=== PATIENT | female | born 1975 | race Caucasian/White ===

== ENCOUNTER 2024-03-06 08:41 | Outpatient (RCR) | payer OTHER, MEDICARE, MEDICAID, SELFPAY | END 2024-05-31 12:31 | disposition home or self-care (01) | LOC: HO.WCC 08:41 | PROVIDERS: Visit Provider Surgery | DX: E11.621 Type 2 diabetes mellitus with foot ulcer (principal); L97.511 Non-pressure chronic ulcer of other part of right foot limited to breakdown of skin; E11.40 Type 2 diabetes mellitus with diabetic neuropathy, unspecified; F17.210 Nicotine dependence, cigarettes, uncomplicated; F11.20 Opioid dependence, uncomplicated; L08.89 Other specified local infections of the skin and subcutaneous tissue; Z79.2 Long term (current) use of antibiotics; Z86.19 Personal history of other infectious and parasitic diseases | CPT/HCPCS: 11042; 11043; 97597 ==

== ENCOUNTER 2024-03-27 13:36 | Inpatient (IN) | payer MEDICARE, MEDICAID, SELFPAY ==
--- NOTE | ~2024-03-27 | CT_ITS ---
EXAMINATION: CT FOOT WITH CONTRAST, RIGHT CLINICAL INFORMATION: Diabetic foot ulcer. Evaluate for osteomyelitis. COMPARISON: Right foot radiographs dated 03/27/2024. TECHNIQUE: Contiguous axial CT images of the right foot were obtained following the IV administration of 85 mL Omnipaque 350 contrast. Multiplanar reformats were provided and reviewed. This CT examination was performed using dose optimization techniques as appropriate, variously including the following: *Automated exposure control *Adjustment of mA and/or kV according to patient size (this includes techniques or standardized protocols for targeted exams where dose is matched to indication/reason for exam; i.e. extremities or head) *Use of iterative reconstruction technique DLP: 141 mGy-cm FINDINGS: Soft tissue wound along the lateral aspect of the 5th metatarsal head measuring up to 1.7 x 2.2 cm (AP by CC). Adjacent skin thickening and subcutaneous edema with enhancement, consistent with cellulitis. There is peripherally enhancing fluid extending both plantar and dorsal to the 5th metatarsal head and likely related to the joint space, concerning for septic arthritis. Focal cortical lucency along the lateral aspect of the 5th metatarsal head measuring up to 0.7 cm in AP dimension, likely indicating early osteomyelitis. Resection of the 1st distal phalanx is redemonstrated. No acute fracture or dislocation. No concerning lytic or blastic osseous lesion. No significant joint space narrowing or marginal osteophytes. Peripherally enhancing fluid collection plantar to the 2nd metatarsophalangeal joint and proximal phalanx measuring up to 2.5 x 1.9 x 1.1 cm. Findings could represent an additional abscess formation in the appropriate clinical setting. Correlate for focal symptomatology. Alternatively, findings could represent a synovial recess versus ganglion cyst. Prominent dorsal subcutaneous edema. The visualized flexor and extensor tendons are grossly intact, however, evaluation is limited on CT examination. Diffuse muscle atrophy. CT/CT foot RT w IV con IMPRESSION: 1. Soft tissue wound along the lateral aspect of the 5th metatarsal head with adjacent cellulitis. Peripherally enhancing fluid extending both plantar and dorsal to the 5th metatarsal head, concerning for septic arthritis. Focal cortical lucency along the lateral aspect of the 5th metatarsal head, likely indicating early osteomyelitis. 2. Peripherally enhancing fluid collection plantar to the 2nd metatarsophalangeal joint and proximal phalanx measuring up to 2.5 cm. Findings could represent an additional abscess formation in the appropriate clinical setting. Correlate for focal symptomatology. Alternatively, findings could represent a synovial recess versus ganglion cyst.
--- NOTE | ~2024-03-27 | US_ITS ---
EXAMINATION: NONINVASIVE ASSESSMENT OF THE ARTERIES OF BOTH LOWER EXTREMITIES INCLUDING BILATERAL LOWER EXTREMITY DUPLEX. CLINICAL INFORMATION: Diabetic foot ulcer COMPARISON: None TECHNIQUE: duplex Doppler techniques with wave form analysis and measurement of velocities in the common femoral, profunda femoral, superficial femoral, popliteal, tibial and peroneal arteries. The study was performed only at rest. FINDINGS: RIGHT LEG Common femoral artery: 166 cm/s, monophasic Profunda femoris artery: 69 cm/s, Multiphasic Superficial femoral artery (proximal): 134 cm/s, Multiphasic Superficial femoral artery (mid): 107 cm/s, monophasic Superficial femoral artery (distal): 131 cm/s, monophasic Proximal Popliteal artery: 125 cm/s, monophasic Mid posterior tibial artery: 133 cm/s, monophasic Multiple prominent lymph nodes in the right groin. LEFT LEG: Common femoral artery: 122 cm/s, Multiphasic Profunda femoris artery: 68 cm/s, Multiphasic Superficial femoral artery (proximal): 115 cm/s, Multiphasic Superficial femoral artery (mid): 111 cm/s, Multiphasic Superficial femoral artery (distal): 93 cm/s, Multiphasic Proximal Popliteal artery: 98 cm/s, Multiphasic Mid posterior tibial artery: 94 cm/s, Multiphasic US/US arterial duplex LE BI IMPRESSION: RIGHT LEG: Mild peripheral vascular disease with monophasic flow throughout the right lower extremity. Monophasic flow in the common femoral artery suggests inflow disease. LEFT LEG: No hemodynamically significant stenosis in the left lower extremity.
--- NOTE | ~2024-03-27 | XR_ITS ---
EXAMINATION: Right foot CLINICAL INFORMATION: Right foot wound COMPARISON: None available. TECHNIQUE: 3 views of the right foot FINDINGS: Soft tissue edema over the forefoot. Soft tissue ulceration of the right foot adjacent to the head of the fifth metatarsal. Bandage over this area. No radiopaque foreign body. No bone destruction or focal bone lesion. No abnormal periosteal reaction. Joint spaces are maintained. No evidence of osteomyelitis. There is been prior amputation of the great toe through the distal shaft of the proximal phalange. XR/XR foot RT min 3V IMPRESSION: Soft tissue ulceration of the right foot adjacent to the head of the fifth metatarsal. No radiopaque foreign body. No radiographic evidence of osteomyelitis.
[2024-03-27 13:40] VITALS: BP 144/84; PULSE 102; RESP 20; TEMP 37.1; O2SAT 97; BMI 34.0
--- NOTE | 2024-03-27 13:41 | ED.GENADULT ---
HPI - General Adult General Chief complaint: Skin/Abscess/Foreign Body Stated complaint: diabetic ulcer Time Seen by Provider: 03/27/24 14:09 Source: patient Mode of arrival: ambulatory Limitations: no limitations History of Present Illness ED Provider: Juancarlos Katz NP HPI narrative: Patient is a 49-year-old female with history of DM, undetectable Hepatitis C presenting to the emergency department from the wound clinic for evaluation of a wound to her right lateral foot. States the wound has been present for approximately 4 months and she has been receiving treatment through the wound care center. States that she tripped and fell on Monday and since that time has had increased pain and new redness. Rates current pain at 8/10. Denies fever/chills/body aches. Denies discharge or drainage from wound. States she has not been on any antibiotics for her wound thus far. complaint: right foot wound Onset (ago): month(s) Location: right and lower extremity Radiation: non-radiation Severity scale (1-10): 8 Quality: aching Pain Consistency: constant Relieving factors: rest Exacerbating factors: movement Associated symptoms: denies other symptoms Treatments prior to arrival: none Related Data Allergies Allergy/AdvReac Type Severity Reaction Status Date / Time sulfamethoxazole Allergy Unknown Verified 03/27/24 13:43 [From Bactrim] trimethoprim [From Bactrim] Allergy Unknown Verified 03/27/24 13:43 Review of Systems Review of Systems: As per HPI. Yes all other systems are reviewed and are negative Constitutional: Constitutional: Reports as per HPI [facility] Social History Social History Alcohol intake: former Smoked in Last 30 Days: No Use of substances other than those prescribed or required for medical reasons: No Last Used Substance: Unknown Any prior treatment program specific to substance use: Yes Advance Directives: No Advance Directives Information Provided: No Do you have a plan to hurt others: No Plan Physical Exam ED Vital Signs: Vital Signs - 24 hr 03/27/24 13:40 03/27/24 14:31 03/27/24 17:21 Temperature 98.8 F 98.3 F 97.7 F Pulse Rate 102 H 91 80 Respiratory Rate 20 16 18 Blood Pressure 144/84 H 129/77 132/72 Pulse Oximetry 97 97 99 Oxygen Delivery Method Room Air Room Air Room Air BMI result Body Mass Index 34.0 Vital signs have been reviewed and appear to be correct. Blood pressure elevated. Heart rate slightly tachycardic. Respiratory rate normal. Temperature normal. Oxygen saturation normal. Const General: cooperative, healthy appearing and no acute distress Orientation/consciousness: oriented to person, oriented to place, oriented to time and patient oriented x3 Limitations: no limitations HENMT Head: Yes normocephalic and Yes atraumatic Ears: external ears normal General nose exam: Normal external nose present Face and sinus: Yes face symmetric Mouth: oropharynx normal and moist mucous membranes Throat: Yes uvula midline Eyes Pupils: Equal, round and reactive pupils present Neck Neck: Yes normal visual inspection and Yes supple Resp Effort & Inspection: normal respiratory effort and able to speak in complete sentences Auscultation: clear to auscultation bilaterally Cardio Rate: regular rate Rhythm: regular rhythm Heart sounds: S1 normal heart sound present and S2 normal heart sound present GI Palpation (GI): Soft to palpation and nontender Auscultation: normoactive bowel sounds General: Yes no CVA tenderness Back/Spine/Pelvis Back: no CVA tenderness Skin General skin exam: elasticity normal and turgor normal Neuro General: oriented to person, oriented to place, oriented to time, patient oriented x3, moves all extremities, no focal motor deficits and CN's II-XI intact bilaterally Cranial nerves: Yes Equal, round and reactive pupils present Cognition (Neuro): normal cognition Extrem Other: General: Yes full ROM, Yes no pedal edema and Yes no calf tenderness Right lower extremity: foot Details: normal capillary refill, tenderness Location: of the lateral foot, toes with normal ROM, warmth Location: of the dorsal foot and other (wound to lateral foot with surrounding erythema and warmth, small amt bloody drainage noted on dressing, see photo); abnormal to inspection Psych Mental Status: mental status grossly normal Affect: normal affect Thought process: Normal thought process present Course Course Course Narrative: RME- 49 year old female with history of diabetes presents for evaluation of right lateral foot ulcer. She is being treated for a diabetic wound and was sent in for IV antibiotics. She reports increasing pain, redness and drainage. Plan for labs, x-ray. Reevaluation(s) Reevaluation #1: Patient was given to me through sign-out through my colleague, Ashley Katz pending xray. X-ray returns revealing soft tissue ulceration of the right foot adjacent to the head of the 5th metatarsal, no radiopaque foreign body. No radiographic evidence of osteomyelitis. Given leukocytosis with left shift with elevated inflammatory markers, patient would benefit from hospital admission for cellulitis for IV antibiotics. Time: 17:48 Reevaluation #2: Spoke to hospitalist, Dr. Rodriguez who accepts transfer of care. Bed request placed. Patient reporting increasing anxiety and would like to smoke a cigarette therefore patient medicated with nicotine patch, her dose of Klonopin as well as Suboxone. Transfer of care initiated. Time: 18:20 Medications Administered Discontinued Medications Generic Name Dose Route Start Last Admin Trade Name Freq PRN Reason Stop Dose Admin Buprenorphine/Naloxone 1 film 03/27/24 18:03 03/27/24 18:15 Buprenorphine/Naloxone 8/2 Mg Film SUBLINGUAL 03/27/24 18:04 1 film ONCE ONE Administration Clonazepam 0.5 mg 03/27/24 18:03 03/27/24 18:14 Clonazepam 0.5 Mg Tablet PO 03/27/24 18:04 0.5 mg ONCE ONE Administration Sodium Chloride 1,000 mls @ 999 mls/hr 03/27/24 14:30 03/27/24 16:02 Ns IV 03/27/24 15:30 Infused .Q1H1M LUZ MARIA Infusion Ceftriaxone Sodium 1 gm/ 50 mls @ 100 mls/hr 03/27/24 14:17 03/27/24 16:02 Sodium Chloride IV 03/27/24 14:46 Infused ONCE ONE Infusion Ketorolac Tromethamine 30 mg 03/27/24 14:17 03/27/24 14:38 Ketorolac Tromethamine 30 Mg/Ml Vial IVPUSH 03/27/24 14:18 30 mg ONCE ONE Administration Nicotine 21 mg 03/27/24 18:07 03/27/24 18:17 Nicotine 21 Mg Patch.Td24 TRANSDERMA 03/27/24 18:08 21 mg ONCE ONE Administration Medical Decision Making Medical Decision Making MDM Narrative: Patient is a 49-year-old female with history of DM, undetectable Hepatitis C presenting to the emergency department from the wound clinic for evaluation of a wound to her right lateral foot. On exam patient is awake, A+Ox3, slightly tachycardic, VS otherwise WNL, afebrile, normal neurological exam without focal deficits, physical exam findings as above. Given reported symptoms and physical exam findings, initial differential includes diabetic ulcer, cellulitis, osteomyelitis. Labs notable for leukocytosis with left shift, elevated ESR of 66, CRP of 26.81, lactic normal. Patient signed out to STONE Mejía pending x-ray results. Differential Diagnosis Differential Diagnoses: The differential diagnosis associated with the presentation includes As per [facility] Admission/Observation Consideration of admission/observation: Escalation of care including admission/observation considered Lab Data [facility] Lab Attestation statement: I reviewed the patient's lab results. As per [facility] 03/27/24 13:42 03/27/24 13:42 Labs: Lab Results 03/27/24 03/27/24 Range/Units 13:42 14:29 WBC 16.6 H (4.8-10.8) X10*3/uL RBC 4.94 (4.20-5.50) X10*6/uL Hgb 14.5 (12.0-16.0) g/dl Hct 43.3 (37.0-47.0) % MCV 87.7 (80.0-98.0) fL MCH 29.4 (27.0-33.0) pg MCHC 33.5 (31.0-35.0) g/dl RDW 14.2 (11.0-16.0) % Plt Count 261 (160-400) X10*3/uL MPV 10.2 (9.4-12.3) fL Immature Gran % (Auto) 0.7 H (0.0-0.4) % Neut % (Auto) 75.7 H (45-73) % Lymph % (Auto) 18.3 L (20-40) % [place] % (Auto) 4.6 (2-11) % Eos % (Auto) 0.5 (0-4) % Baso % (Auto) 0.2 (0-2) % Lymph # (Auto) 3.0 (1.2-4.9) X10*3/uL [place] # (Auto) 0.8 (0.1-1.2) X10*3/uL Eos # (Auto) 0.1 (0.0-0.4) X10*3/uL Baso # (Auto) 0.0 (0.0-0.2) X10*3/uL Abs Immat Gran (auto) 0.11 H (0.00-0.03) X10*3/uL Absolute Neuts (auto) 12.6 H (2.0-8.3) x10*3/uL Absolute Nucleated RBC 0.000 (0.0-0.012) X10*3/uL Nucleated RBC % (auto) 0.0 (0.0-0.2) /100WBC ESR 66 H (0-20) MM/HR Sodium 140 (135-145) mmol/L Potassium 3.8 (3.3-5.1) mmol/L Chloride 106 (96-108) mmol/L Carbon Dioxide 19 L (22-29) mmol/L Anion Gap 19 (12-20) BUN 17 H (9-16) mg/dL Creatinine 0.79 (0.5-1.4) mg/dL Estim Creat Clear Calc 79.1 Estimated GFR > 60 Random Glucose 222 H (60-115) mg/dL Lactic Acid 1.3 (0.5-2.0) mmol/L Calcium 10.2 (8.4-10.2) mg/dL Total Bilirubin 0.5 (0.0-1.0) mg/dL AST 11 (5-31) U/L ALT 17 (0-31) U/L Alkaline Phosphatase 81 (39-117) U/L C-Reactive Protein 26.81 H (< or = 0.50) mg/dL Total Protein 8.5 H (6.5-8.0) g/dL Albumin 4.6 (3.5-5.0) g/dL Lipase 15 (8-78) U/L Radiology Impression Discussion of test interpretation with radiology: I have reviewed the radiologist's reading. Radiologist Impression: Impression: Soft tissue ulceration of the right foot adjacent to the head of the 5th metatarsal. No radiopaque foreign body. No radiographic evidence of osteomyelitis. Read by Dr. Danielle. I reviewed the x-ray and agree with the radiology report. External Record Review External record reviewed: Inpatient record, Office record and Outpatient record Prescription Management I considered prescription management with: Antibiotic Critical Care Time Critical Care Time Critical Care Time: Yes Total Critical Care Time: 36 Attestation: I have personally provided critical care time exclusive of time spent on separately billable procedures. Time includes review of lab data, radiology results, discussion with consultants, and monitoring for potential decompensation. Intervention performed as documented. Discharge Plan Discharge Clinical Impression: Diabetic foot ulcer Patient Disposition: Still a Patient Print Language: Kinyarwanda
[2024-03-27 14:07] LABS: MANUAL DIFF FLAG NO
[2024-03-27 14:08] LABS: Basophils Percent Auto 0.2 % (0-2); Eosinophils Absolute Auto 0.1 X10*3/uL (0.0-0.4); Eosinophils Percent Auto 0.5 % (0-4); Hematocrit 43.3 % (37.0-47.0); Hemoglobin 14.5 g/dl (12.0-16.0); Imm Gran Abs Auto 0.11 X10*3/uL (0.00-0.03); Imm Gran Pct Auto 0.7 % (0.0-0.4); Lymphocytes Percent Auto 18.3 % (20-40); Mean Corpuscular HGB Conc 33.5 g/dl (31.0-35.0); Mean Corpuscular Hemoglobin 29.4 pg (27.0-33.0); Mean Corpuscular Volume 87.7 fL (80.0-98.0); Mean Platelet Volume 10.2 fL (9.4-12.3); Monocytes Absolute Auto 0.8 X10*3/uL (0.1-1.2); Monocytes Percent Auto 4.6 % (2-11); Neutrophils Absolute Auto 12.6 x10*3/uL (2.0-8.3); Neutrophils Percent Auto 75.7 % (45-73); Platelet Count 261 X10*3/uL (160-400); Red Blood Count 4.94 X10*6/uL (4.20-5.50); Red Cell Distribution Width 14.2 % (11.0-16.0); White Blood Count 16.6 X10*3/uL (4.8-10.8)
[2024-03-27 14:24] LABS: Alanine Aminotransferase 17 U/L (0-31); Albumin Level 4.6 g/dL (3.5-5.0); Alkaline Phosphatase 81 U/L (39-117); Anion Gap 19 (12-20); Aspartate Amino Transferase 11 U/L (5-31); Bilirubin Total 0.5 mg/dL (0.0-1.0); Blood Urea Nitrogen 17 mg/dL (9-16); C Reactive Protein 26.81 mg/dL (< or = 0.50); Calcium 10.2 mg/dL (8.4-10.2); Carbon Dioxide 19 mmol/L (22-29); Chloride 106 mmol/L (96-108); Creatinine Clr Calc Pharmacy 79.1; Estimated Glomerular Filt Rate > 60; Glucose Random 222 mg/dL (60-115); Lipase 15 U/L (8-78); Potassium 3.8 mmol/L (3.3-5.1); Sodium 140 mmol/L (135-145); Total Protein 8.5 g/dL (6.5-8.0)
[2024-03-27 14:31] VITALS: BP 129/77; PULSE 91; RESP 16; TEMP 36.8; O2SAT 97
[2024-03-27] MEDS: cefTRIAXone sodium 1 GM in 0.9 % Sodium Chloride 50 ML IV (14:37)
[2024-03-27] MEDS: 0.9 % Sodium Chloride 1,000 ML 999 ML IV (14:38)
[2024-03-27] MEDS: Ketorolac Tromethamine 30 MG/ML VIAL IVPUSH (14:38)
[2024-03-27 14:43] LABS: Lactic Acid 1.3 mmol/L (0.5-2.0)
[2024-03-27 14:50] LABS: Erythrocyte Sedimentation Rate 66 MM/HR (0-20)
[2024-03-27 17:21] VITALS: BP 132/72; PULSE 80; RESP 18; TEMP 36.5; O2SAT 99
[2024-03-27] MEDS: clonazePAM 0.5 MG TABLET PO ×2 (18:14→22:09)
--- NOTE | 2024-03-27 18:14 | PM.IMHP ---
History of Present Illness Date of Service: 03/27/24 Chief Complaint: dfu 49F PMH DM, polysubstance dependence, OM s/p right first toe amputation, hcv s/p treatment, bipolar disorder, ADD, sent from [facility] Care Clinic for worsening right foot lateral diabetic foot ulcer. Patient reports treating current ulcer for several months with wound care, she injured her foot 2 days prior to presentation and has been having increasing pain and feeling off since then. Has not measured any fevers, she is having some drainage from ulcer. In ED patient with leukocytosis, elevated CRP, x-ray negative for osteomyelitis. Review of Systems Review of Systems: Yes all other systems are reviewed and are negative [facility] Medical History (Updated 03/27/24 @ 18:32 by Buck Rodriguez MD) Diabetes mellitus Social History Alcohol intake: former Smoked in Last 30 Days: No Use of substances other than those prescribed or required for medical reasons: No Last Used Substance: Unknown Any prior treatment program specific to substance use: Yes Advance Directives: No Advance Directives Information Provided: No Do you have a plan to hurt others: No Plan Meds Allergies Allergy/AdvReac Type Severity Reaction Status Date / Time sulfamethoxazole Allergy Unknown Verified 03/27/24 13:43 [From Bactrim] trimethoprim [From Bactrim] Allergy Unknown Verified 03/27/24 13:43 Home Medications ?Medication ?Instructions ?Recorded ?Confirmed ?Last Taken ?Type asenapine maleate 5 mg sublingual 5 mg sublingual DAILY 03/27/24 03/27/24 03/27/24 History tablet atorvastatin 20 mg tablet 20 mg PO BEDTIME 03/27/24 03/27/24 03/26/24 History buprenorphine 8 mg-naloxone 2 mg 1 film buccal BID 03/27/24 03/27/24 03/27/24 History sublingual film (Suboxone) clonazepam 0.5 mg tablet 0.5 mg PO BID PRN Anxiety 03/27/24 03/27/24 Unknown History deutetrabenazine 24 mg 24 mg PO DAILY 03/27/24 03/27/24 03/27/24 History tablet,extended release 24 hr (Austedo XR) docusate sodium 100 mg capsule 100 mg PO BID PRN Constipation 03/27/24 03/27/24 Unknown History empagliflozin 25 mg tablet 25 mg PO DAILY 05/03/27/24 03/27/24 History (Jardiance) hydroxyzine HCl 50 mg tablet 50 mg PO TID PRN Anxiety 03/27/24 03/27/24 Unknown History ibuprofen 600 mg tablet 600 mg PO Q6H PRN Pain (Scale 03/27/24 03/27/24 Unknown History Score 4-6) lisdexamfetamine 50 mg capsule 50 mg PO DAILY 03/27/24 03/27/24 03/27/24 History (Vyvanse) melatonin 10 mg tablet 10 mg PO BEDTIME 03/27/24 03/27/24 03/26/24 History metformin 1,000 mg tablet 1,000 mg PO BIDWM 03/27/24 03/27/24 03/27/24 History multivitamin 1 tab PO DAILY 03/27/24 03/27/24 03/27/24 History nicotine 21 mg/24 hr daily 1 patch transdermal DAILY 03/27/24 03/27/24 Unknown History transdermal patch pregabalin 100 mg capsule 100 mg PO TID 03/27/24 03/27/24 03/27/24 History sennosides 8.6 mg tablet (senna) 17.2 mg PO BEDTIME PRN Constipation 03/27/24 03/27/24 Unknown History topiramate 100 mg tablet 100 mg PO BID 03/27/24 03/27/24 03/27/24 History Physical Exam Vital Signs and Narrative: Vital Signs: Last Vital Signs Temp 97.7 F 03/27/24 17:21 Pulse 80 03/27/24 17:21 Resp 18 03/27/24 17:21 BP 132/72 03/27/24 17:21 Pulse Ox 99 03/27/24 17:21 O2 Del Method Room Air 03/27/24 17:21 BMI result Body Mass Index 34.0 General: AO X 3, no acute distress Resp: CTA bilateral, no accessory muscles used CVS: S1,S2,RRR GI: soft, non tender, non distended Neuro: motor grossly intact, alert Psych: appropriate affect, appropriate insight right first toe amp, right lateral foot ulcer (see ed note for picture) Results Labs 03/27/24 13:42 03/27/24 13:42 Labs: Laboratory Results - last 24 hr 03/27/24 03/27/24 13:42 14:29 MCV 87.7 MCH 29.4 MCHC 33.5 RDW 14.2 Plt Count 261 MPV 10.2 Immature Gran % (Auto) 0.7 H Neut % (Auto) 75.7 H Lymph % (Auto) 18.3 L [place] % (Auto) 4.6 Eos % (Auto) 0.5 Baso % (Auto) 0.2 Lymph # (Auto) 3.0 [place] # (Auto) 0.8 Eos # (Auto) 0.1 Baso # (Auto) 0.0 Abs Immat Gran (auto) 0.11 H Absolute Neuts (auto) 12.6 H Absolute Nucleated RBC 0.000 Nucleated RBC % (auto) 0.0 ESR 66 H Anion Gap 19 Estim Creat Clear Calc 79.1 Estimated GFR > 60 Random Glucose 222 H Lactic Acid 1.3 Calcium 10.2 Total Bilirubin 0.5 AST 11 ALT 17 Alkaline Phosphatase 81 C-Reactive Protein 26.81 H Total Protein 8.5 H Albumin 4.6 Lipase 15 Assessment and Plan (1) Diabetic foot ulcer: Status: Acute Plan 49F PMH DM, polysubstance dependence, OM s/p right first toe amputation, hcv s/p treatment, bipolar disorder, ADD, sent from Wound Care Clinic for worsening right foot lateral diabetic foot ulcer Right diabetic foot ulcer with cellulitis IV vancomycin Zosyn, follow-up cultures, id eval, wound care Diabetes with hyperglycemia Basal bolus insulin, hold orals Bipolar disorder Continue with mood stabilizers DVT prophylaxis with Lovenox Full Code Patient with extensive cellulitis of the right foot and at risk for MDR organisms given diabetes and recurrent infections, therefore expected require at least 2 midnights inpatient Quality Stroke Does the patient have a stroke diagnosis?: No VTE Prior VTE?: No VTE Risk Level:: Medical - moderate - high VTE Device Contraindication: Treatment Not Indicated VTE Drug Contraindication: N/A - Med Ordered
[2024-03-27] MEDS: Buprenorphine/Naloxone 8/2 mg FILM 1 FILM SUBLINGUAL (18:15)
[2024-03-27] MEDS: Nicotine 21 MG PATCH.TD24 TRANSDERMA (18:17)
[2024-03-27 18:53] VITALS: BP 137/73; PULSE 81; RESP 18; TEMP 36.5; O2SAT 98
--- NOTE | 2024-03-27 19:06 | PHA.MEDREC ---
Pharmacy Consult ? Medication Reconciliation Pharmacy has completed the medication reconciliation. Med list obtained from [facility]ier [phone]. [place] closed at time of inquiry
[2024-03-27] MEDS: vancomycin/NS 2,000 MG/500 ML PLAST..BAG 250 MG IV (19:11)
[2024-03-27] MEDS: Insulin Glargine,Hum.rec.anlog 100 UNIT/ML 10 ML VIAL 10 UNIT SUBCUT (21:58)
[2024-03-27] MEDS: Buprenorphine/Naloxone 8/2 mg FILM 1 FILM BUCCAL (21:59)
[2024-03-27] MEDS: Melatonin 3 MG TABLET 9 MG PO (21:59)
[2024-03-27] MEDS: Pregabalin 100 MG CAPSULE PO (21:59)
[2024-03-27] MEDS: Atorvastatin Calcium 20 MG TABLET PO (21:59)
[2024-03-27] MEDS: Topiramate 100 MG TABLET PO (22:00)
[2024-03-27] MEDS: traMADoL HCL 50 MG TABLET PO (22:00)
[2024-03-27 22:01] LABS: Glucose, Whole Blood 189 mg/dL (60-115)
[2024-03-27] MEDS: Insulin Lispro 100 UNIT/ML 3 ML VIAL SUBCUT (22:10)
--- NOTE | 2024-03-27 22:44 | PC.NURSE ---
pt medicated per JAN- laying in bed watching a movie. call guthrie within reach
[2024-03-28] MEDS: traMADoL HCL 50 MG TABLET PO ×4 (02:05→19:26)
[2024-03-28] MEDS: clonazePAM 0.5 MG TABLET PO ×3 (02:06→11:27)
[2024-03-28 04:37] VITALS: BP 130/68; PULSE 71; RESP 18; TEMP 36.7; O2SAT 98
[2024-03-28 05:55] VITALS: BMI 34.9
[2024-03-28] MEDS: vancomycin HCL 1,000 MG in 0.9 % Sodium Chloride 250 ML 270 MG IV ×2 (06:14→18:26)
[2024-03-28 06:42] VITALS: BP 113/64; PULSE 65; RESP 16; TEMP 36.1; O2SAT 96
[2024-03-28 07:28] VITALS: BP 116/65; PULSE 64; RESP 14; TEMP 36; O2SAT 96
[2024-03-28 07:29] LABS: Hematocrit 36.3 % (37.0-47.0); Hemoglobin 12.1 g/dl (12.0-16.0); Mean Corpuscular HGB Conc 33.3 g/dl (31.0-35.0); Mean Corpuscular Hemoglobin 29.2 pg (27.0-33.0); Mean Corpuscular Volume 87.7 fL (80.0-98.0); Mean Platelet Volume 10.2 fL (9.4-12.3); Platelet Count 217 X10*3/uL (160-400); Red Blood Count 4.14 X10*6/uL (4.20-5.50); Red Cell Distribution Width 14.2 % (11.0-16.0); White Blood Count 9.2 X10*3/uL (4.8-10.8)
[2024-03-28 07:39] LABS: Glucose, Whole Blood 212 mg/dL (60-115)
[2024-03-28] MEDS: Pregabalin 100 MG CAPSULE PO ×3 (08:00→19:31)
[2024-03-28] MEDS: Buprenorphine/Naloxone 8/2 mg FILM 1 FILM BUCCAL ×2 (08:00→16:46)
[2024-03-28] MEDS: Empagliflozin 25 MG TABLET PO (08:00)
[2024-03-28] MEDS: Multivitamin TABLET 1 TAB PO (08:00)
[2024-03-28] MEDS: Topiramate 100 MG TABLET PO ×2 (08:01→19:32)
[2024-03-28] MEDS: Nicotine 21 MG PATCH.TD24 TRANSDERMA (08:01)
[2024-03-28] MEDS: Piperacillin Sodium/Tazobactam 3.375 GM in 0.9 % Sodium Chloride 50 ML IV ×3 (08:06→21:07)
[2024-03-28] MEDS: 0.9 % Sodium Chloride Flush 3 ML SYRINGE IVFLUSH ×3 (08:08→19:32)
[2024-03-28] MEDS: Insulin Lispro 100 UNIT/ML 3 ML VIAL SUBCUT ×4 (08:11→21:03)
--- NOTE | 2024-03-28 09:42 | HO.PM.IMPN ---
Subjective Subjective Date of Service: 03/28/24 Interval History: no new complaints Physical Exam Vital Signs: Vital Signs: Last Vital Signs Temp 96.8 F 03/28/24 07:28 Pulse 64 03/28/24 07:28 Resp 14 03/28/24 07:28 BP 116/65 03/28/24 07:28 Pulse Ox 96 03/28/24 07:28 O2 Del Method Room Air 03/28/24 07:28 BMI result Body Mass Index 34.9 General: AO X 3, no acute distress Resp: CTA bilateral, no accessory muscles used CVS: S1,S2,RRR GI: soft, non tender, non distended Neuro: motor grossly intact, alert Psych: appropriate affect, appropriate insight right first toe amp, right lateral foot ulcer (see ed note for picture) Objective Data Active Medications Atorvastatin Calcium (Atorvastatin Calcium 20 Mg Tablet) 20 mg PO BEDTIME [facility] Last Admin: 03/27/24 21:59 Dose: 20 mg Documented By: ALEX Buprenorphine/Naloxone (Buprenorphine/Naloxone 8/2 Mg Film) 1 film BUCCAL BID [facility] Last Admin: 03/28/24 08:00 Dose: 1 film Documented By: DARRION Clonazepam (Clonazepam 0.5 Mg Tablet) 0.5 mg PO BID PRN PRN Reason: Anxiety Last Admin: 03/28/24 02:06 Dose: 0.5 mg Documented By: MORENO Empagliflozin (Empagliflozin 25 Mg Tablet) 25 mg PO DAILY [facility] Last Admin: 03/28/24 08:00 Dose: 25 mg Documented By: DARRION Glucose (Glucose Gel 15 Gm Gel..Gram.) 15 gm PO Q15M PRN; Protocol PRN Reason: per Hypoglycemia Standing Ord. Hydroxyzine HCl (Hydroxyzine Hcl 50 Mg Tablet) 50 mg PO TID PRN PRN Reason: Anxiety Piperacillin Sod/Tazobactam (Sod 3.375 gm/ Sodium Chloride) 50 mls @ 100 mls/hr IV Q6H [facility] Last Infusion: 03/28/24 08:45 Dose: Infused Documented By: DARRION Dextrose (D10) 250 mls @ 750 mls/hr IV Q15M PRN; Protocol PRN Reason: per Hypoglycemia Standing Ord. Vancomycin HCl 1,000 mg/ (Sodium Chloride) 270 mls @ 270 mls/hr IV Q12H [facility] Last Infusion: 03/28/24 07:24 Dose: Infused Documented By: DARRION Insulin Glargine (Insulin Glargine,Hum.Rec.Anlog 100 Unit/Ml 10 Ml Vial) 10 unit SUBCUT BEDTIME [facility] Last Admin: 03/27/24 21:58 Dose: 10 unit Documented By: ALEX Insulin Human Lispro (Insulin Lispro 100 Unit/Ml 3 Ml Vial) 0 unit SUBCUT QIDACHS [facility]; Protocol Last Admin: 03/28/24 08:11 Dose: 2 unit Documented By: DARRION Melatonin (Melatonin 3 Mg Tablet) 9 mg PO BEDTIME [facility] Last Admin: 03/27/24 21:59 Dose: 9 mg Documented By: ALEX Multivitamins/Vitamin C (Multivitamin Tablet) 1 tab PO DAILY [facility] Last Admin: 03/28/24 08:00 Dose: 1 tab Documented By: DARRION Nicotine (Nicotine 21 Mg Patch.Td24) 21 mg TRANSDERMA DAILY [facility] Last Admin: 03/28/24 08:01 Dose: 21 mg Documented By: DARRION Pharmacy Consult (Consult Rx Vancomycin Dosing) 1 each MISCELLANE DAILY PRN PRN Reason: Consult order Pregabalin (Pregabalin 100 Mg Capsule) 100 mg PO TID [facility] Last Admin: 03/28/24 08:00 Dose: 100 mg Documented By: DARRION Sodium Chloride (0.9 % Sodium Chloride Flush 3 Ml Syringe) [facility] Last Admin: 03/28/24 08:08 Dose: 3 ml Documented By: DARRION Topiramate (Topiramate 100 Mg Tablet) 100 mg PO BID [facility] Last Admin: 03/28/24 08:01 Dose: 100 mg Documented By: DARRION Tramadol HCl (Tramadol Hcl 50 Mg Tablet) 50 mg PO Q4H PRN PRN Reason: Pain, Severe (Pain Scale 7-10) Last Admin: 03/28/24 08:01 Dose: 50 mg Documented By: DARRION Labs 03/28/24 07:04 03/27/24 13:42 Labs: Laboratory Results - last 24 hr 03/27/24 03/27/24 03/27/24 13:42 14:29 21:55 MCV 87.7 MCH 29.4 MCHC 33.5 RDW 14.2 Plt Count 261 MPV 10.2 Immature Gran % (Auto) 0.7 H Neut % (Auto) 75.7 H Lymph % (Auto) 18.3 L Rice % (Auto) 4.6 Eos % (Auto) 0.5 Baso % (Auto) 0.2 Lymph # (Auto) 3.0 Rice # (Auto) 0.8 Eos # (Auto) 0.1 Baso # (Auto) 0.0 Abs Immat Gran (auto) 0.11 H Absolute Neuts (auto) 12.6 H Absolute Nucleated RBC 0.000 Nucleated RBC % (auto) 0.0 ESR 66 H Anion Gap 19 Estim Creat Clear Calc 79.1 Estimated GFR > 60 POC Glucose 189 H Random Glucose 222 H Lactic Acid 1.3 Calcium 10.2 Total Bilirubin 0.5 AST 11 ALT 17 Alkaline Phosphatase 81 C-Reactive Protein 26.81 H Total Protein 8.5 H Albumin 4.6 Lipase 15 03/28/24 03/28/24 07:04 07:31 MCV 87.7 MCH 29.2 MCHC 33.3 RDW 14.2 Plt Count 217 MPV 10.2 Immature Gran % (Auto) Neut % (Auto) Lymph % (Auto) Rice % (Auto) Eos % (Auto) Baso % (Auto) Lymph # (Auto) Rice # (Auto) Eos # (Auto) Baso # (Auto) Abs Immat Gran (auto) Absolute Neuts (auto) Absolute Nucleated RBC 0.000 Nucleated RBC % (auto) 0.0 ESR Anion Gap Estim Creat Clear Calc Estimated GFR POC Glucose 212 H Random Glucose Lactic Acid Calcium Total Bilirubin AST ALT Alkaline Phosphatase C-Reactive Protein Total Protein Albumin Lipase Assessment and Plan (1) Diabetes mellitus: Status: Acute Plan 49F PMH DM, polysubstance dependence, OM s/p right first toe amputation, hcv s/p treatment, bipolar disorder, ADD, sent [facility] for worsening right foot lateral diabetic foot ulcer Right diabetic foot ulcer with cellulitis continue IV vancomycin Zosyn, follow-up cultures, id eval, wound care Diabetes with hyperglycemia Basal bolus insulin, holding orals Bipolar disorder Continue with mood stabilizers DVT prophylaxis with Lovenox Full Code reason for continued hospitalization: iv abx for dfu Quality Stroke Does the patient have a stroke diagnosis?: No VTE Prior VTE?: No VTE Risk Level:: Medical - moderate - high VTE Device Contraindication: Treatment Not Indicated VTE Drug Contraindication: N/A - Med Ordered
--- NOTE | 2024-03-28 09:51 | MHC.CM.PN ---
IMM delivered. Patient lives in an apartment in [facility]. Currently staying in [place] in a residential treatment program for [facility]. On suboxone. Functionally independent. Patient of [facility] wound clinic for DM ulcer to R foot. PCP Mansi Johnson MD in [facility] No HCP. CM provided education and offered assistance. Patient declined. States she would like [facility] to be her daughter, but will need to discuss w/ dtr first. DP: ID consult pending. Goal is return to treatment program. Program will provide transport. CM will continue to follow.
[2024-03-28 10:40] LABS: Anion Gap 14 (12-20); Blood Urea Nitrogen 16 mg/dL (9-16); Calcium 9.3 mg/dL (8.4-10.2); Carbon Dioxide 20 mmol/L (22-29); Chloride 110 mmol/L (96-108); Creatinine Clr Calc Pharmacy 93.2; Estimated Glomerular Filt Rate > 60; Glucose Fasting 158 mg/dL (60-99); Sodium 140 mmol/L (135-145)
[2024-03-28 11:40] LABS: Glucose, Whole Blood 200 mg/dL (60-115)
--- NOTE | 2024-03-28 13:58 | P.CDIM_ITS ---
PROVIDER RESPONSE TEXT: To clarify, the appropriate diagnosis supported by the clinical indicators: Yes, cellulitis is related to / associated with / due to DM QUERY TEXT: PHYSICIAN'S DOCUMENTATION REQUEST Date of Query: 03/28/2024 01:43 PM EDT Patient Name: Maribell Alfredo Admit Date: 03/27/2024 Dear Buck Rodriguez, A review of the medical record indicates additional documentation may be needed. Please review below and update the documentation accordingly. Documentation includes the conditions of right diabetic foot ulcer and cellulitis treated with IV vancomycin Zosyn, follow-up cultures, ID eval, wound car Please clarify the relationship between these conditions: Yes, cellulitis is related to / associated with / due to DM No, cellulitis is not related to / associated with / due to DM Other (explain) Clinically unable to determine (explain) Thank you, Heather Peres RN Use of terms such as suspected, likely, concern for, or probable (associated with a specific diagnosi s that is being evaluated, monitored, or treated as if it exists) are acceptable and can be coded in the inpatient se tting, when documented at the time of discharge. Please use your independent medical judgment in providing your response. THIS QUERY IS PART OF THE PERMANENT MEDICAL RECORD
--- NOTE | 2024-03-28 14:10 | HO.WOUND ---
Wound Consult: Initial 49yr old?female admitted to [facility] on 03/27/24 - See progress notes and H&P for detailed history.? Wound consult placed for Right Lateral Foot Wound POA.? Patient agreeable to assessment and photo documentation.? Right Lateral foot Etiology: Diabetic Wound Measurements: 1.2cm x 1.6cm x 0.4cm undermining at 9 o'clock 1cm deep Wound Bed: pale pink adeherent yellow slough Drainage / Odor: mild odor noted - sero sang and creamy yellow serosang from undermining area Edges: ? macerated Linh wound: ?macerated - swelling and erythema some fluctance noted at the 9 o'clock area Pain: patient reports pain Goals of Treatment: ? Durafiber packing for moisture management and antimicrobial properties Patient reports she follows with the outpt wound clinic - recommend continued following at time of d/c. Recommendations: 1. Turn and Reposition every 2 hours and as needed for patient comfort.? Use pillows or wedges to support off loading positions. 2. Off Load all bony prominences with use of pillows and heel boots if needed.? Apply Preventative foams where needed. ? 3. Monitor for incontinence and moisture control, use barrier creams when needed for prevention and treatment. 4. Provide adequate and supplemental nutrition.? 5. Maintain blood glucose levels per Providers order. 6. Right Lateral Foot - Cleanse and irrigate with NS, Pat dry.? Apply barrier to periwound, lightly pack with Durafiber AG, be sure to leave a wick to easy removal.? Cover with Foam dressing.? Change every other day. Off Load Pressure. Re-consult wound care Nurse for wound deterioration or wound changes.
[2024-03-28 15:52] VITALS: BP 141/81; PULSE 68; RESP 20; TEMP 36.2; O2SAT 96
[2024-03-28 16:31] LABS: Glucose, Whole Blood 289 mg/dL (60-115)
[2024-03-28] MEDS: hydrOXYzine HCL 50 MG TABLET PO (18:28)
[2024-03-28] MEDS: Atorvastatin Calcium 20 MG TABLET PO (19:32)
[2024-03-28] MEDS: Melatonin 3 MG TABLET 9 MG PO (19:32)
[2024-03-28 19:42] VITALS: BP 148/73; PULSE 79; RESP 20; TEMP 36; O2SAT 98
[2024-03-28 20:08] LABS: Glucose, Whole Blood 258 mg/dL (60-115)
[2024-03-28] MEDS: clonazePAM 1 MG TABLET PO (21:03)
[2024-03-28] MEDS: Insulin Glargine,Hum.rec.anlog 100 UNIT/ML 10 ML VIAL 10 UNIT SUBCUT (21:04)
[2024-03-29] MEDS: Piperacillin Sodium/Tazobactam 3.375 GM in 0.9 % Sodium Chloride 50 ML IV ×3 (03:10→14:07)
[2024-03-29 03:11] VITALS: BP 112/60; PULSE 59; RESP 16; TEMP 36.2; O2SAT 97
[2024-03-29] MEDS: vancomycin HCL 1,000 MG in 0.9 % Sodium Chloride 250 ML 270 MG IV (06:21)
[2024-03-29 07:26] LABS: Creatinine Clr Calc Pharmacy 91.9; Estimated Glomerular Filt Rate > 60
[2024-03-29 07:41] LABS: Glucose, Whole Blood 193 mg/dL (60-115)
[2024-03-29 07:42] VITALS: BP 107/58; PULSE 60; RESP 14; TEMP 36.2; O2SAT 98
[2024-03-29] MEDS: Empagliflozin 25 MG TABLET PO (08:05)
[2024-03-29] MEDS: Topiramate 100 MG TABLET PO ×2 (08:05→21:31)
[2024-03-29] MEDS: Insulin Lispro 100 UNIT/ML 3 ML VIAL SUBCUT ×4 (08:05→21:33)
[2024-03-29] MEDS: Pregabalin 100 MG CAPSULE PO ×3 (08:05→21:31)
[2024-03-29] MEDS: 0.9 % Sodium Chloride Flush 3 ML SYRINGE IVFLUSH ×2 (08:05→16:38)
[2024-03-29] MEDS: Multivitamin TABLET 1 TAB PO (08:05)
[2024-03-29] MEDS: Nicotine 21 MG PATCH.TD24 TRANSDERMA (08:06)
[2024-03-29] MEDS: Buprenorphine/Naloxone 8/2 mg FILM 1 FILM BUCCAL ×2 (08:06→16:38)
[2024-03-29] MEDS: clonazePAM 1 MG TABLET PO ×3 (08:09→21:31)
[2024-03-29] MEDS: traMADoL HCL 50 MG TABLET PO ×2 (08:20→14:09)
--- NOTE | 2024-03-29 09:50 | HO.PM.IMPN ---
Subjective Subjective Date of Service: 03/29/24 Interval History: improved Physical Exam Vital Signs: Vital Signs: Last Vital Signs Temp 97.1 F 03/29/24 07:42 Pulse 60 03/29/24 07:42 Resp 14 03/29/24 07:42 BP 107/58 L 03/29/24 07:42 Pulse Ox 98 03/29/24 07:42 O2 Del Method Room Air 03/29/24 07:42 BMI result Body Mass Index 34.9 improved erythema at ulcer site Objective Data Active Medications Atorvastatin Calcium (Atorvastatin Calcium 20 Mg Tablet) 20 mg PO BEDTIME [facility] Last Admin: 03/28/24 19:32 Dose: 20 mg Documented By: MARIA E Buprenorphine/Naloxone (Buprenorphine/Naloxone 8/2 Mg Film) 1 film BUCCAL BID@0800,1700 [facility] Last Admin: 03/29/24 08:06 Dose: 1 film Documented By: HERMAN Clonazepam (Clonazepam 1 Mg Tablet) 1 mg PO BID PRN PRN Reason: Anxiety Last Admin: 03/29/24 08:09 Dose: 1 mg Documented By: HERMAN Comments: per MD torres to give early Empagliflozin (Empagliflozin 25 Mg Tablet) 25 mg PO DAILY [facility] Last Admin: 03/29/24 08:05 Dose: 25 mg Documented By: HERMAN Glucose (Glucose Gel 15 Gm Gel..Gram.) 15 gm PO Q15M PRN; Protocol PRN Reason: per Hypoglycemia Standing Ord. Hydroxyzine HCl (Hydroxyzine Hcl 50 Mg Tablet) 50 mg PO TID PRN PRN Reason: Anxiety Last Admin: 03/28/24 18:28 Dose: 50 mg Documented By: DARRION Piperacillin Sod/Tazobactam (Sod 3.375 gm/ Sodium Chloride) 50 mls @ 100 mls/hr IV Q6H [facility] Last Infusion: 03/29/24 09:11 Dose: Infused Documented By: HERMAN Dextrose (D10) 250 mls @ 750 mls/hr IV Q15M PRN; Protocol PRN Reason: per Hypoglycemia Standing Ord. Vancomycin HCl 1,000 mg/ (Sodium Chloride) 270 mls @ 270 mls/hr IV Q12H [facility] Last Infusion: 03/29/24 08:13 Dose: Infused Documented By: HERMAN Insulin Glargine (Insulin Glargine,Hum.Rec.Anlog 100 Unit/Ml 10 Ml Vial) 10 unit SUBCUT BEDTIME [facility] Last Admin: 03/28/24 21:04 Dose: 10 unit Documented By: MARIA E Insulin Human Lispro (Insulin Lispro 100 Unit/Ml 3 Ml Vial) 0 unit SUBCUT QIDACHS [facility]; Protocol Last Admin: 03/29/24 08:05 Dose: 2 unit Documented By: HERMAN Melatonin (Melatonin 3 Mg Tablet) 9 mg PO BEDTIME [facility] Last Admin: 03/28/24 19:32 Dose: 9 mg Documented By: MARIA E Multivitamins/Vitamin C (Multivitamin Tablet) 1 tab PO DAILY [facility] Last Admin: 03/29/24 08:05 Dose: 1 tab Documented By: HERMAN Nicotine (Nicotine 21 Mg Patch.Td24) 21 mg TRANSDERMA DAILY [facility] Last Admin: 03/29/24 08:06 Dose: 21 mg Documented By: HERMAN Pharmacy Consult (Consult Rx Vancomycin Dosing) 1 each MISCELLANE DAILY PRN PRN Reason: Consult order Pregabalin (Pregabalin 100 Mg Capsule) 100 mg PO TID [facility] Last Admin: 03/29/24 08:05 Dose: 100 mg Documented By: HERMAN Sodium Chloride (0.9 % Sodium Chloride Flush 3 Ml Syringe) 3 ml IVFLUSH QSHIFT [facility] Last Admin: 03/29/24 08:05 Dose: 3 ml Documented By: HERMAN Topiramate (Topiramate 100 Mg Tablet) 100 mg PO BID [facility] Last Admin: 03/29/24 08:05 Dose: 100 mg Documented By: HERMAN Tramadol HCl (Tramadol Hcl 50 Mg Tablet) 50 mg PO Q4H PRN PRN Reason: Pain, Severe (Pain Scale 7-10) Last Admin: 03/29/24 08:20 Dose: 50 mg Documented By: HERMAN Labs 03/28/24 07:04 03/29/24 05:47 Labs: Laboratory Results - last 24 hr 03/28/24 03/28/24 03/28/24 10:15 11:36 16:27 Hold Purple Top Anion Gap 14 Estim Creat Clear Calc 93.2 Estimated GFR > 60 POC Glucose 200 H 289 H Fasting Glucose 158 H Calcium 9.3 D 03/28/24 03/29/24 03/29/24 20:05 05:47 07:30 Hold Purple Top SEE NOTE Anion Gap Estim Creat Clear Calc 91.9 Estimated GFR > 60 POC Glucose 258 H 193 H Fasting Glucose Calcium Microbiology Microbiology Results: Microbiology 03/27/24 14:29 Blood Culture - Preliminary Blood - Venous No growth after 24 hours. 03/27/24 13:42 Blood Culture - Preliminary Blood - Venous No growth after 24 hours. Assessment and Plan (1) Diabetes mellitus: Status: Acute Plan 49F PMH DM, polysubstance dependence, OM s/p right first toe amputation, hcv s/p treatment, bipolar disorder, ADD, sent from [facility] for worsening right foot lateral diabetic foot ulcer Right diabetic foot ulcer with cellulitis continue IV vancomycin Zosyn, follow-up cultures, id eval, wound care Diabetes with hyperglycemia Basal bolus insulin, holding orals Bipolar disorder Continue with mood stabilizers DVT prophylaxis with Lovenox Full Code reason for continued hospitalization: iv abx for dfu Quality Stroke Does the patient have a stroke diagnosis?: No VTE Prior VTE?: No VTE Risk Level:: Medical - moderate - high VTE Device Contraindication: Treatment Not Indicated VTE Drug Contraindication: N/A - Med Ordered
--- NOTE | 2024-03-29 10:31 | MHC.CM.PN ---
EMR reviewed. Per MD rounds patient is not medically cleared for dc. CM will continue to follow.
[2024-03-29 11:40] LABS: Glucose, Whole Blood 239 mg/dL (60-115)
[2024-03-29] MEDS: iohexoL 350 MG/ML 75 ML INFUS..BTL 85 ML IV (14:14)
[2024-03-29 16:21] LABS: Glucose, Whole Blood 235 mg/dL (60-115)
[2024-03-29] MEDS: oxyCODONE HCl Immed Release 5 MG TABLET PO ×2 (17:29→21:31)
[2024-03-29 19:36] LABS: Vancomycin Random 9.1 mcg/mL (15-20)
[2024-03-29 19:45] VITALS: BP 144/82; PULSE 82; RESP 16; TEMP 36.3; O2SAT 95
--- NOTE | 2024-03-29 19:45 | HE.PHANOTE ---
Re: Nirajo Renal function is stable. Trough returned at 9.1. Patient is subtherapeutic. Dose increased to 1,250mg q12h, with predicted AUC 455mg/L, and predicted trough 12.2 mg/L. Next trough to be drawn 03/30 @ 1800.
[2024-03-29 20:40] LABS: Glucose, Whole Blood 294 mg/dL (60-115)
[2024-03-29] MEDS: Melatonin 3 MG TABLET 9 MG PO (21:30)
[2024-03-29] MEDS: Atorvastatin Calcium 20 MG TABLET PO (21:31)
[2024-03-29] MEDS: Insulin Glargine,Hum.rec.anlog 100 UNIT/ML 10 ML VIAL 10 UNIT SUBCUT (21:33)
[2024-03-29] MEDS: vancomycin HCL 1,250 MG in 0.9 % Sodium Chloride 250 ML 166.67 MG IV (22:02)
--- NOTE | 2024-03-29 23:31 | W.PM.IDCN ---
History of Present Illness Data of Consult Service Date: 03/29/24 Requesting physician: Buck Rodriguez Primary Care Provider: Unknown Physician HPI Reason for consult: right foot infection She presents with right foot lateral ulcer and pain. She has symptoms for last several weeks. She has CT scan early OM lateral fifth head She is at a residential home in [place] Review of Systems Review of Systems: Yes all other systems are reviewed and are negative [facility] Past Medical History Medical History Diabetes mellitus Family History Family history: reviewed and not pertinent Social History Social History Household Members: Other Housing: Other Housing Other:: senior living house Do you presently have visiting nurse or other home services: No Alcohol intake: former Patient Tobacco Use Status: Current everyday Tobacco user Tobacco use type: Cigarette Cigarettes Per Day: 9 Years Smoked: 35 Second Hand Smoke Exposure: Yes service: No Meds Allergies Allergy/AdvReac Type Severity Reaction Status Date / Time sulfamethoxazole Allergy Unknown Verified 03/27/24 13:43 [From Bactrim] trimethoprim [From Bactrim] Allergy Unknown Verified 03/27/24 13:43 Active Medications: Current Medications Atorvastatin Calcium (Atorvastatin Calcium 20 Mg Tablet) 20 mg PO BEDTIME [facility] Last Admin: 03/29/24 21:31 Dose: 20 mg Buprenorphine/Naloxone (Buprenorphine/Naloxone 8/2 Mg Film) 1 film BUCCAL BID@0800,1700 [facility] Last Admin: 03/29/24 16:38 Dose: 1 film Clonazepam (Clonazepam 1 Mg Tablet) 1 mg PO BID PRN PRN Reason: Anxiety Last Admin: 03/29/24 21:31 Dose: 1 mg Empagliflozin (Empagliflozin 25 Mg Tablet) 25 mg PO DAILY [facility] Last Admin: 03/29/24 08:05 Dose: 25 mg Glucose (Glucose Gel 15 Gm Gel..Gram.) 15 gm PO Q15M PRN; Protocol PRN Reason: per Hypoglycemia Standing Ord. Hydroxyzine HCl (Hydroxyzine Hcl 50 Mg Tablet) 50 mg PO TID PRN PRN Reason: Anxiety Last Admin: 03/28/24 18:28 Dose: 50 mg Dextrose (D10) 250 mls @ 750 mls/hr IV Q15M PRN; Protocol PRN Reason: per Hypoglycemia Standing Ord. Vancomycin HCl 1,250 mg/ (Sodium Chloride) 250 mls @ 166.667 mls/hr IV Q12H [facility] Last Admin: 03/29/24 22:02 Dose: 166.67 mls/hr Insulin Glargine (Insulin Glargine,Hum.Rec.Anlog 100 Unit/Ml 10 Ml Vial) 10 unit SUBCUT BEDTIME [facility] Last Admin: 03/29/24 21:33 Dose: 10 unit Insulin Human Lispro (Insulin Lispro 100 Unit/Ml 3 Ml Vial) 0 unit SUBCUT QIDACHS [facility]; Protocol Last Admin: 03/29/24 21:33 Dose: 6 unit Melatonin (Melatonin 3 Mg Tablet) 9 mg PO BEDTIME [facility] Last Admin: 03/29/24 21:30 Dose: 9 mg Multivitamins/Vitamin C (Multivitamin Tablet) 1 tab PO DAILY [facility] Last Admin: 03/29/24 08:05 Dose: 1 tab Nicotine (Nicotine 21 Mg Patch.Td24) 21 mg TRANSDERMA DAILY [facility] Last Admin: 03/29/24 08:06 Dose: 21 mg Oxycodone HCl (Oxycodone Hcl Immed Release 5 Mg Tablet) 5 mg PO Q4H PRN PRN Reason: moderate pain Last Admin: 03/29/24 21:31 Dose: 5 mg Pharmacy Consult (Consult Rx Vancomycin Dosing) 1 each MISCELLANE DAILY PRN PRN Reason: Consult order Pregabalin (Pregabalin 100 Mg Capsule) 100 mg PO TID [facility] Last Admin: 03/29/24 21:31 Dose: 100 mg Sodium Chloride (0.9 % Sodium Chloride Flush 3 Ml Syringe) 3 ml IVFLUSH QSHIFT [facility] Last Admin: 03/29/24 16:38 Dose: 3 ml Topiramate (Topiramate 100 Mg Tablet) 100 mg PO BID [facility] Last Admin: 03/29/24 21:31 Dose: 100 mg Tramadol HCl (Tramadol Hcl 50 Mg Tablet) 50 mg PO Q4H PRN PRN Reason: Pain, Severe (Pain Scale 7-10) Last Admin: 03/29/24 14:09 Dose: 50 mg Home Medications ?Medication ?Instructions ?Recorded ?Confirmed ?Last Taken ?Type asenapine maleate 5 mg sublingual 5 mg sublingual DAILY 03/27/24 03/27/24 03/27/24 History tablet atorvastatin 20 mg tablet 20 mg PO BEDTIME 03/27/24 03/27/24 03/26/24 History buprenorphine 8 mg-naloxone 2 mg 1 film buccal BID 03/27/24 03/27/24 03/27/24 History sublingual film (Suboxone) clonazepam 0.5 mg tablet 0.5 mg PO BID PRN Anxiety 03/27/24 03/27/24 Unknown History deutetrabenazine 24 mg 24 mg PO DAILY 03/27/24 03/27/24 03/27/24 History tablet,extended release 24 hr (Austedo XR) docusate sodium 100 mg capsule 100 mg PO BID PRN Constipation 03/27/24 03/27/24 Unknown History empagliflozin 25 mg tablet 25 mg PO DAILY 03/27/24 03/27/24 03/27/24 History (Jardiance) hydroxyzine HCl 50 mg tablet 50 mg PO TID PRN Anxiety 03/27/24 03/27/24 Unknown History ibuprofen 600 mg tablet 600 mg PO Q6H PRN Pain (Scale 03/27/24 03/27/24 Unknown History Score 4-6) lisdexamfetamine 50 mg capsule 50 mg PO DAILY 03/27/24 03/27/24 03/27/24 History (Vyvanse) melatonin 10 mg tablet 10 mg PO BEDTIME 03/27/24 03/27/24 03/26/24 History metformin 1,000 mg tablet 1,000 mg PO BIDWM 03/27/24 03/27/24 03/27/24 History multivitamin 1 tab PO DAILY 03/27/24 03/27/24 03/27/24 History nicotine 21 mg/24 hr daily 1 patch transdermal DAILY 03/27/24 03/27/24 Unknown History transdermal patch pregabalin 100 mg capsule 100 mg PO TID 03/27/24 03/27/24 03/27/24 History sennosides 8.6 mg tablet (senna) 17.2 mg PO BEDTIME PRN Constipation 03/27/24 03/27/24 Unknown History topiramate 100 mg tablet 100 mg PO BID 03/27/24 03/27/24 03/27/24 History Physical Exam Vital Signs: Vital Signs: Last Vital Signs Temp 97.3 F 03/29/24 19:45 Pulse 82 03/29/24 19:45 Resp 16 03/29/24 19:45 BP 144/82 H 03/29/24 19:45 Pulse Ox 95 03/29/24 19:45 O2 Del Method Room Air 03/29/24 19:45 BMI result Body Mass Index 34.9 Extrem: Other: ulcer lateral 5th with necrosis Results Labs 03/28/24 07:04 03/29/24 05:47 Labs: BMP 03/29/24 05:47 Creatinine 0.69 Microbiology Microbiology Results: Microbiology 03/27/24 14:29 Blood - Venous Blood Culture - Preliminary No growth after 48 hours. 03/27/24 13:42 Blood - Venous Blood Culture - Preliminary No growth after 48 hours. Assessment and Plan (1) Diabetic foot ulcer: Status: Acute There is OM No specific organism but possible gram positive ,gram negative and anerobes. She reports being homeless Continue Vancomycin and Zosyn Possible Ertapenem or Vancomycin for six weeks but await cultures. Consider Vascular eval
[2024-03-30 03:06] VITALS: BP 123/60; PULSE 80; RESP 16; TEMP 36.6; O2SAT 95
[2024-03-30] MEDS: oxyCODONE HCl Immed Release 5 MG TABLET PO ×5 (03:10→22:32)
[2024-03-30 07:17] VITALS: BP 136/67; PULSE 67; RESP 18; TEMP 36.1; O2SAT 97
[2024-03-30 07:21] LABS: Glucose, Whole Blood 256 mg/dL (60-115)
[2024-03-30 07:53] LABS: Creatinine Clr Calc Pharmacy 77.4; Estimated Glomerular Filt Rate > 60
[2024-03-30] MEDS: Empagliflozin 25 MG TABLET PO (08:03)
[2024-03-30] MEDS: Multivitamin TABLET 1 TAB PO (08:03)
[2024-03-30] MEDS: Pregabalin 100 MG CAPSULE PO ×3 (08:03→22:10)
[2024-03-30] MEDS: Topiramate 100 MG TABLET PO ×2 (08:03→22:10)
[2024-03-30] MEDS: Insulin Lispro 100 UNIT/ML 3 ML VIAL SUBCUT ×7 (08:03→22:31)
[2024-03-30] MEDS: Nicotine 21 MG PATCH.TD24 TRANSDERMA (08:03)
[2024-03-30] MEDS: 0.9 % Sodium Chloride Flush 3 ML SYRINGE IVFLUSH (08:04)
[2024-03-30] MEDS: vancomycin HCL 1,250 MG in 0.9 % Sodium Chloride 250 ML 166.67 MG IV (08:04)
--- NOTE | 2024-03-30 09:35 | P.PNIM_ITS ---
Subjective Subjective Date of Service: 03/30/24 Interval History: improved Physical Exam 2 Vital Signs: Vital Signs: Last Vital Signs Temp 96.9 F 03/30/24 07:17 Pulse 67 03/30/24 07:17 Resp 18 03/30/24 07:17 BP 136/67 03/30/24 07:17 Pulse Ox 97 03/30/24 07:17 O2 Del Method Room Air 03/30/24 07:17 BMI result Body Mass Index 34.9 Extrem: Other: ulcer lateral 5th with necrosis Objective Data Active Medications Amphetamine/Dextroamphetamine (Dextroamphetamine/Amphetamine Xr 10 Mg Cap.Er.24h) 20 mg PO DAILY [facility] Atorvastatin Calcium (Atorvastatin Calcium 20 Mg Tablet) 20 mg PO BEDTIME [facility] Last Admin: 03/29/24 21:31 Dose: 20 mg Documented By: GARRETT Buprenorphine/Naloxone (Buprenorphine/Naloxone 8/2 Mg Film) 1 film BUCCAL BID@0800,1700 [facility] Last Admin: 03/29/24 16:38 Dose: 1 film Documented By: HERMAN Cariprazine (Cariprazine Hcl 1.5 Mg Capsule) 1.5 mg PO DAILY [facility] Clonazepam (Clonazepam 1 Mg Tablet) 1 mg PO BID PRN PRN Reason: Anxiety Last Admin: 03/29/24 21:31 Dose: 1 mg Documented By: GARRETT Empagliflozin (Empagliflozin 25 Mg Tablet) 25 mg PO DAILY [facility] Last Admin: 03/30/24 08:03 Dose: 25 mg Documented By: GINO Glucose (Glucose Gel 15 Gm Gel..Gram.) 15 gm PO Q15M PRN; Protocol PRN Reason: per Hypoglycemia Standing Ord. Hydroxyzine HCl (Hydroxyzine Hcl 50 Mg Tablet) 50 mg PO TID PRN PRN Reason: Anxiety Last Admin: 03/28/24 18:28 Dose: 50 mg Documented By: COTBRYNN Dextrose (D10) 250 mls @ 750 mls/hr IV Q15M PRN; Protocol PRN Reason: per Hypoglycemia Standing Ord. Vancomycin HCl 1,250 mg/ (Sodium Chloride) 250 mls @ 166.667 mls/hr IV Q12H [facility] Last Admin: 03/30/24 08:04 Dose: 166.67 mls/hr Documented By: GINO Insulin Glargine (Insulin Glargine,Hum.Rec.Anlog 100 Unit/Ml 10 Ml Vial) 10 unit SUBCUT BEDTIME [facility] Last Admin: 03/29/24 21:33 Dose: 10 unit Documented By: GARRETT Insulin Human Lispro (Insulin Lispro 100 Unit/Ml 3 Ml Vial) 0 unit SUBCUT QIDACHS [facility]; Protocol Last Admin: 03/30/24 08:03 Dose: 6 unit Documented By: GINO Melatonin (Melatonin 3 Mg Tablet) 9 mg PO BEDTIME [facility] Last Admin: 03/29/24 21:30 Dose: 9 mg Documented By: GARRETT Multivitamins/Vitamin C (Multivitamin Tablet) 1 tab PO DAILY [facility] Last Admin: 03/30/24 08:03 Dose: 1 tab Documented By: GINO Nicotine (Nicotine 21 Mg Patch.Td24) 21 mg TRANSDERMA DAILY [facility] Last Admin: 03/30/24 08:03 Dose: 21 mg Documented By: GINO Oxycodone HCl (Oxycodone Hcl Immed Release 5 Mg Tablet) 5 mg PO Q4H PRN PRN Reason: moderate pain Last Admin: 03/30/24 08:20 Dose: 5 mg Documented By: GINO Pharmacy Consult (Consult Rx Vancomycin Dosing) 1 each MISCELLANE DAILY PRN PRN Reason: Consult order Pregabalin (Pregabalin 100 Mg Capsule) 100 mg PO TID [facility] Last Admin: 03/30/24 08:03 Dose: 100 mg Documented By: GNIO Sodium Chloride (0.9 % Sodium Chloride Flush 3 Ml Syringe) 3 ml IVFLUSH QSHIFT [facility] Last Admin: 03/30/24 08:04 Dose: 3 ml Documented By: GINO Topiramate (Topiramate 100 Mg Tablet) 100 mg PO BID [facility] Last Admin: 03/30/24 08:03 Dose: 100 mg Documented By: GINO Tramadol HCl (Tramadol Hcl 50 Mg Tablet) 50 mg PO Q4H PRN PRN Reason: Pain, Severe (Pain Scale 7-10) Last Admin: 03/29/24 14:09 Dose: 50 mg Documented By: COTEMA Labs 03/28/24 07:04 03/30/24 05:42 Labs: Laboratory Results - last 24 hr 03/29/24 03/29/24 03/29/24 11:37 16:18 19:04 Hold Purple Top Estim Creat Clear Calc Estimated GFR POC Glucose 239 H 235 H Random Vancomycin 9.1 L 03/29/24 03/30/24 03/30/24 20:33 05:42 07:15 Hold Purple Top SEE NOTE Estim Creat Clear Calc 77.4 Estimated GFR > 60 POC Glucose 294 H 256 H Random Vancomycin Microbiology Microbiology Results: Microbiology 03/27/24 14:29 Blood Culture - Preliminary Blood - Venous No growth after 48 hours. 03/27/24 13:42 Blood Culture - Preliminary Blood - Venous No growth after 48 hours. Assessment and Plan (1) Diabetes mellitus: Status: Acute Plan 49F PMH DM, polysubstance dependence, OM s/p right first toe amputation, hcv s/p treatment, bipolar disorder, ADD, [facility] for worsening right foot lateral diabetic foot ulcer Right diabetic foot ulcer with cellulitis and OM continue IV vancomycin 6 weeks, end may 08, 2024 arterial duplex Diabetes with hyperglycemia Basal bolus insulin, holding orals Bipolar disorder Continue with mood stabilizers DVT prophylaxis with Lovenox Full Code reason for continued hospitalization: iv abx for om Quality Stroke Does the patient have a stroke diagnosis?: No VTE Prior VTE?: No VTE Risk Level:: Medical - moderate - high VTE Device Contraindication: Treatment Not Indicated VTE Drug Contraindication: N/A - Med Ordered
--- NOTE | 2024-03-30 10:03 | PC.NURSE ---
Unable to place new IV, primary RN made aware. Pt crying in room, anxious.
--- NOTE | 2024-03-30 10:30 | PC.NURSE ---
pt lost IV access, unable to get new access. Dr Jennifer gorman.
[2024-03-30 11:19] LABS: Glucose, Whole Blood 249 mg/dL (60-115)
--- NOTE | 2024-03-30 15:39 | MHC.CM.PN ---
Addendum entered by Mar Stanford 04/01/24 14:52: PT REPORTS SHE WOULD PREFER TO DC TO [facility] THEY WERE INFORMED VIA [facility] PT WILL NEED: A LESS THAN 30 IN HER DCS PICC REPORT SENT TO SNF RX FOR HER SUBOXONE Addendum entered by Mar Stanford 03/31/24 14:19: [facility] AND [facility] OFFERING BEDS PT PROVIDED WITH ADDRESSES FOR BOTH AND WILL SPEAK TO FAMILY SHE WILL PROVIDE HER PREFERENCE TOMORROW MORNING Addendum entered by Mar Stanford 03/31/24 13:06: CM MET WITH PT TO DISCUSS DC PLANS SHE IS AWARE SHE MAY NEED TO GO TO A STR AND WILL NOT BE ABLE TO BRING ALL OF HER BELONGINGS WITH HER HER MOTHER AND DAUGHTER WERE ON SITE TODAY AND WILL BRING MOST OF PTS BELONGINGS TO THEIR HOME FOR STORAGE PT NOW HAS A BAG AND BACKPACK SHE WILL BRING TO THE REHAB WITH HER PT REPORTS SHE WOULD PREFER A STR IN [place] IF POSSIBLE REFERRALS MADE TO [facility] AND [facility]. Original Note: PT STATED THIS MORNING THAT SHE WAS BEING KICKED OUT OF THE RECOVERY HOME SHE WAS AT [facility] CM LATER SAW THE GRINDING MACHINE TENDER FROM THE HOME WHEN SHE BROUGHT IN PTS MEDS, AND CONFIRMED THAT THEY HAD NOT DISCHARGED THE PT CM MET WITH PT WHO STATED SHE DOES NOT LIKE THE HOME. CM INFORMED HER SHE WOULD LIKELY HAVE TO GO TO A LONG TERM IF SHE COULD NOT RETURN THERE SO MAY WANT TO HOLD THAT BED UNTIL SHE FOUND ALTERNATE HOUSING. PT AGREED, HOWEVER LATER HAD ALL OF HER BELONGINGS DELIVERED TO HER ROOM AT [facility]. PT MAY NEED LT IV ABX, REFERRALS HAVE BEEN MADE TO [facility] AND [facility] IF SHE DOES NOT REQUIRE IV MEDS AT DC, SHE WILL DISCHARGE TO A LONG TERM
[2024-03-30 15:54] VITALS: BP 162/86; PULSE 108; RESP 20; TEMP 36.4; O2SAT 95
[2024-03-30 16:17] LABS: Glucose, Whole Blood 181 mg/dL (60-115)
[2024-03-30] MEDS: clonazePAM 1 MG TABLET PO (17:26)
[2024-03-30] MEDS: Amoxicillin/Potassium Clav 875 MG TABLET PO (18:26)
[2024-03-30] MEDS: Doxycycline Monohydrate 100 MG CAPSULE PO (18:26)
[2024-03-30 18:47] LABS: Vancomycin Random 17.2 mcg/mL (15-20)
--- NOTE | 2024-03-30 18:50 | HE.PHANOTE ---
Re: Vanco Trough returned at 17.2, patient is therapeutic, but should be 10-15. Renal function decreased. Dose reduced to 1,000 Q12H. Next trough 03/31 at 1800.
[2024-03-30 20:06] VITALS: BP 158/79; PULSE 107; RESP 18; TEMP 36.5; O2SAT 97
[2024-03-30 20:29] LABS: Glucose, Whole Blood 172 mg/dL (60-115)
[2024-03-30] MEDS: Melatonin 3 MG TABLET 9 MG PO (22:10)
[2024-03-30] MEDS: Atorvastatin Calcium 20 MG TABLET PO (22:11)
[2024-03-30] MEDS: Insulin Glargine,Hum.rec.anlog 100 UNIT/ML 10 ML VIAL 10 UNIT SUBCUT (22:13)
[2024-03-31 01:22] VITALS: BP 158/78; PULSE 86; RESP 18; TEMP 36.1; O2SAT 95
[2024-03-31] MEDS: oxyCODONE HCl Immed Release 5 MG TABLET PO ×5 (03:19→21:06)
[2024-03-31] MEDS: Amoxicillin/Potassium Clav 875 MG TABLET PO ×2 (05:36→17:14)
[2024-03-31] MEDS: Doxycycline Monohydrate 100 MG CAPSULE PO ×2 (05:36→17:14)
[2024-03-31 06:46] VITALS: BP 128/78; PULSE 77; RESP 16; TEMP 36.6; O2SAT 98
[2024-03-31 07:14] LABS: Creatinine Clr Calc Pharmacy 69.7; Estimated Glomerular Filt Rate > 60
[2024-03-31 07:18] LABS: Glucose, Whole Blood 276 mg/dL (60-115)
[2024-03-31] MEDS: Insulin Lispro 100 UNIT/ML 3 ML VIAL SUBCUT ×8 (07:41→21:03)
--- NOTE | 2024-03-31 08:42 | HO.PM.IMPN ---
Subjective Subjective Date of Service: 03/31/24 Interval History: improved Physical Exam Vital Signs: Vital Signs: Last Vital Signs Temp 97.8 F 03/31/24 06:46 Pulse 77 03/31/24 06:46 Resp 16 03/31/24 06:46 BP 128/78 03/31/24 06:46 Pulse Ox 98 03/31/24 06:46 O2 Del Method Room Air 03/31/24 06:46 BMI result Body Mass Index 34.9 Extrem: Other: ulcer lateral 5th with necrosis Objective Data Active Medications Amoxicillin/Clavulanate Potassium (Amoxicillin/Potassium Clav 875 Mg Tablet) 875 mg PO Q12H [facility] Last Admin: 03/31/24 05:36 Dose: 875 mg Documented By: GARRETT Atorvastatin Calcium (Atorvastatin Calcium 20 Mg Tablet) 20 mg PO BEDTIME [facility] Last Admin: 03/30/24 22:11 Dose: 20 mg Documented By: GARRETT Buprenorphine/Naloxone (Buprenorphine/Naloxone 8/2 Mg Film) 1 film BUCCAL BID@0800,1700 [facility] Last Admin: 03/31/24 07:44 Dose: Not Given Documented By: GINO Non-Admin Reason: Patient Refused Clonazepam (Clonazepam 1 Mg Tablet) 1 mg PO BID PRN PRN Reason: Anxiety Last Admin: 03/30/24 17:26 Dose: 1 mg Documented By: GINO Doxycycline Monohydrate (Doxycycline Monohydrate 100 Mg Capsule) 100 mg PO Q12H [facility] Last Admin: 03/31/24 05:36 Dose: 100 mg Documented By: GARRETT Empagliflozin (Empagliflozin 25 Mg Tablet) 25 mg PO DAILY [facility] Last Admin: 03/30/24 08:03 Dose: 25 mg Documented By: GINO Glucose (Glucose Gel 15 Gm Gel..Gram.) 15 gm PO Q15M PRN; Protocol PRN Reason: per Hypoglycemia Standing Ord. Hydroxyzine HCl (Hydroxyzine Hcl 50 Mg Tablet) 50 mg PO TID PRN PRN Reason: Anxiety Last Admin: 03/28/24 18:28 Dose: 50 mg Documented By: STEWEMA Dextrose (D10) 250 mls @ 750 mls/hr IV Q15M PRN; Protocol PRN Reason: per Hypoglycemia Standing Ord. Vancomycin HCl 1,000 mg/ (Sodium Chloride) 270 mls @ 270 mls/hr IV Q12H [facility] Last Admin: 03/31/24 07:45 Dose: Not Given Documented By: GINO Non-Admin Reason: No access MD gorman Insulin Glargine (Insulin Glargine,Hum.Rec.Anlog 100 Unit/Ml 10 Ml Vial) 10 unit SUBCUT BEDTIME [facility] Last Admin: 03/30/24 22:13 Dose: 10 unit Documented By: GARRETT Insulin Human Lispro (Insulin Lispro 100 Unit/Ml 3 Ml Vial) [facility] Last Admin: 03/31/24 07:41 Dose: 6 unit Documented By: GINO Insulin Human Lispro (Insulin Lispro 100 Unit/Ml 3 Ml Vial) 5 unit SUBCUT QIDAS [facility] Last Admin: 03/31/24 07:42 Dose: 5 unit Documented By: GINO Melatonin (Melatonin 3 Mg Tablet) 9 mg PO BEDTIME [facility] Last Admin: 03/30/24 22:10 Dose: 9 mg Documented By: GARRETT Multivitamins/Vitamin C (Multivitamin Tablet) 1 tab PO DAILY [facility] Last Admin: 03/30/24 08:03 Dose: 1 tab Documented By: GINO Nicotine (Nicotine 21 Mg Patch.Td24) 21 mg TRANSDERMA DAILY [facility] Last Admin: 03/30/24 08:03 Dose: 21 mg Documented By: GINO Pt Own ( Lisdexamfetamine [ Vyvanse] 50 Mg Capsule) 50 mg PO DAILY [facility] Last Admin: 03/30/24 12:37 Dose: 50 mg Documented By: GINO Pt Own ( Deutetrabenazine [ Austedo Xr] 24 Mg Tablet Extended Release 24 H 24 mg PO DAILY [facility] Last Admin: 03/30/24 12:39 Dose: 24 mg Documented By: GINO Pt Own (Asenapine Maleate 5 Mg Tablet, Sublingual) 5 mg PO BID [facility] Last Admin: 03/30/24 22:11 Dose: 5 mg Documented By: GARRETT Oxycodone HCl (Oxycodone Hcl Immed Release 5 Mg Tablet) 5 mg PO Q4H PRN PRN Reason: moderate pain Last Admin: 03/31/24 07:41 Dose: 5 mg Documented By: GINO Pharmacy Consult (Consult Rx Vancomycin Dosing) 1 each MISCELLANE DAILY PRN PRN Reason: Consult order Pregabalin (Pregabalin 100 Mg Capsule) 100 mg PO TID [facility] Last Admin: 03/30/24 22:10 Dose: 100 mg Documented By: GARRETT Sodium Chloride (0.9 % Sodium Chloride Flush 3 Ml Syringe) 3 ml IVFLUSH QSHIFT [facility] Last Admin: 03/31/24 07:40 Dose: Not Given Documented By: GINO Non-Admin Reason: No Access Topiramate (Topiramate 100 Mg Tablet) 100 mg PO BID [facility] Last Admin: 03/30/24 22:10 Dose: 100 mg Documented By: GARRETT Tramadol HCl (Tramadol Hcl 50 Mg Tablet) 50 mg PO Q4H PRN PRN Reason: Pain, Severe (Pain Scale 7-10) Last Admin: 03/29/24 14:09 Dose: 50 mg Documented By: COTEMA Labs 03/28/24 07:04 03/31/24 05:58 Labs: Laboratory Results - last 24 hr 03/30/24 03/30/24 03/30/24 11:16 16:11 18:09 Hold Purple Top Estim Creat Clear Calc Estimated GFR POC Glucose 249 H 181 H Random Vancomycin 17.2 03/30/24 03/31/24 03/31/24 20:26 05:58 07:14 Hold Purple Top SEE NOTE Estim Creat Clear Calc 69.7 Estimated GFR > 60 POC Glucose 172 H 276 H Random Vancomycin Assessment and Plan (1) Diabetes mellitus: Status: Acute Plan 49F PMH DM, polysubstance dependence, OM s/p right first toe amputation, hcv s/p treatment, bipolar disorder, ADD, sent [facility] for worsening right foot lateral diabetic foot ulcer Right diabetic foot ulcer with cellulitis and OM continue IV vancomycin 6 weeks, end may 08, 2024 currently no iv access - will cover with po augmentin and doxy until reaccessed arterial duplex - RLE Mild peripheral vascular disease, vascular eval Diabetes with hyperglycemia Basal bolus insulin, holding orals Bipolar disorder Continue with mood stabilizers DVT prophylaxis with Lovenox Full Code reason for continued hospitalization: iv abx for om Quality Stroke Does the patient have a stroke diagnosis?: No VTE Prior VTE?: No VTE Risk Level:: Medical - moderate - high VTE Device Contraindication: Treatment Not Indicated VTE Drug Contraindication: N/A - Med Ordered
[2024-03-31] MEDS: Empagliflozin 25 MG TABLET PO (09:32)
[2024-03-31] MEDS: Multivitamin TABLET 1 TAB PO (09:32)
[2024-03-31] MEDS: Pregabalin 100 MG CAPSULE PO ×3 (09:33→21:02)
[2024-03-31] MEDS: Topiramate 100 MG TABLET PO ×2 (09:33→21:02)
[2024-03-31 11:29] LABS: Glucose, Whole Blood 237 mg/dL (60-115)
[2024-03-31] MEDS: Nicotine 21 MG PATCH.TD24 TRANSDERMA (11:37)
[2024-03-31] MEDS: clonazePAM 1 MG TABLET PO ×2 (11:55→21:05)
[2024-03-31 15:07] VITALS: BP 148/78; PULSE 100; RESP 18; TEMP 36.3; O2SAT 97
[2024-03-31 16:46] LABS: Glucose, Whole Blood 179 mg/dL (60-115)
[2024-03-31 18:51] LABS: Vancomycin Random 4.6 mcg/mL (15-20)
--- NOTE | 2024-03-31 19:24 | HE.PHANOTE ---
Re: Vanco Renal function has decreased. Trough returned at 4.6. Patient dose not have IV access, and has not received a dose since 03/30 @ 08:04. Per Dr. Rodriguez hold all future doses and troughs until patient regains IV access. Per nurse, Maribel Christian, plan is for a PICC on Monday because Monday is the holiday. No future trough scheduled.
[2024-03-31 19:40] VITALS: BP 139/79; PULSE 94; RESP 18; TEMP 36.3; O2SAT 95
[2024-03-31 19:56] LABS: Glucose, Whole Blood 188 mg/dL (60-115)
[2024-03-31] MEDS: Melatonin 3 MG TABLET 9 MG PO (21:01)
[2024-03-31] MEDS: Atorvastatin Calcium 20 MG TABLET PO (21:02)
[2024-03-31] MEDS: Insulin Glargine,Hum.rec.anlog 100 UNIT/ML 10 ML VIAL 10 UNIT SUBCUT (21:02)
[2024-04-01] MEDS: oxyCODONE HCl Immed Release 5 MG TABLET PO ×6 (01:23→21:46)
[2024-04-01 03:20] VITALS: BP 160/71; PULSE 81; RESP 16; TEMP 36.4; O2SAT 99
[2024-04-01] MEDS: Amoxicillin/Potassium Clav 875 MG TABLET PO ×2 (05:14→17:50)
[2024-04-01] MEDS: Doxycycline Monohydrate 100 MG CAPSULE PO ×2 (05:14→17:50)
[2024-04-01 05:59] LABS: Creatinine Clr Calc Pharmacy 72.8; Estimated Glomerular Filt Rate > 60
[2024-04-01 07:29] VITALS: BP 146/68; PULSE 69; RESP 18; TEMP 36.3; O2SAT 99
[2024-04-01 07:35] LABS: Glucose, Whole Blood 220 mg/dL (60-115)
[2024-04-01] MEDS: Pregabalin 100 MG CAPSULE PO ×3 (08:07→19:59)
[2024-04-01] MEDS: Topiramate 100 MG TABLET PO ×2 (08:08→19:59)
[2024-04-01] MEDS: Multivitamin TABLET 1 TAB PO (08:08)
[2024-04-01] MEDS: Insulin Lispro 100 UNIT/ML 3 ML VIAL SUBCUT ×7 (08:08→21:47)
[2024-04-01] MEDS: Empagliflozin 25 MG TABLET PO (08:08)
[2024-04-01] MEDS: Nicotine 21 MG PATCH.TD24 TRANSDERMA (08:08)
--- NOTE | 2024-04-01 09:06 | HE.PHANOTE ---
Vancomycin Spoke with Patients nurse kassandra brown. Patient still does not have IV access and will be getting PICC placement tomorrow
--- NOTE | 2024-04-01 09:19 | PM.CNGS ---
History of Present Illness Consult details Consult date: 04/01/24 Reason for consult: wound care Narrative: Very complex 49-year-old female with a history of bipolar disorder and polysubstance abuse and diabetes presents for nonhealing right lower extremity ulcer. It became quite painful and she was worried about it. It was more so on the right lower extremity lateral aspect where she developed significant cellulitis. She has been doing all her local wound care. Of note she had the right great toe distal tip amputated at [facility]. She now presents to us for vascular evaluation. Review of Systems Review of Systems: Yes all other systems are reviewed and are negative Constitutional: Constitutional: Reports no additional constitutional complaints ENT: Reports Normal hearing present Cardiovascular: Cardiovascular: Denies chest pain, Denies chest pain at rest, Denies chest pain with activity and Denies pedal edema Respiratory: Respiratory: Denies cough Gastrointestinal: Gastrointestinal: Denies abdominal pain Musculoskeletal: Musculoskeletal: Denies abnormal gait, Denies muscle cramps and Denies radiating pain into limb Integumentary/Breasts: Skin/Breast: Denies skin ulcer and Denies wounds Neurologic: Reports Normal hearing present and Denies abnormal gait Psychiatric: Psychiatric: Reports no additional psychiatric complaints PMFSH Past Medical History Medical History Diabetes mellitus Family History Family history: reviewed and not pertinent Social History Social History Household Members: Other Housing: Other Housing Other:: longterm house Do you presently have visiting nurse or other home services: No Alcohol intake: former Patient Tobacco Use Status: Current everyday Tobacco user Tobacco use type: Cigarette Cigarettes Per Day: 9 Years Smoked: 35 Second Hand Smoke Exposure: Yes service: No Meds Allergies Allergy/AdvReac Type Severity Reaction Status Date / Time sulfamethoxazole Allergy Unknown Verified 03/27/24 13:43 [From Bactrim] trimethoprim [From Bactrim] Allergy Unknown Verified 03/27/24 13:43 Active Medications: Current Medications Amoxicillin/Clavulanate Potassium (Amoxicillin/Potassium Clav 875 Mg Tablet) 875 mg PO Q12H [facility] Last Admin: 04/01/24 05:14 Dose: 875 mg Atorvastatin Calcium (Atorvastatin Calcium 20 Mg Tablet) 20 mg PO BEDTIME [facility] Last Admin: 03/31/24 21:02 Dose: 20 mg Buprenorphine/Naloxone (Buprenorphine/Naloxone 8/2 Mg Film) 1 film BUCCAL BID@0800,1700 [facility] Last Admin: 04/01/24 08:08 Dose: Not Given Clonazepam (Clonazepam 1 Mg Tablet) 1 mg PO BID PRN PRN Reason: Anxiety Last Admin: 03/31/24 21:05 Dose: 1 mg Doxycycline Monohydrate (Doxycycline Monohydrate 100 Mg Capsule) 100 mg PO Q12H [facility] Last Admin: 04/01/24 05:14 Dose: 100 mg Empagliflozin (Empagliflozin 25 Mg Tablet) 25 mg PO DAILY [facility] Last Admin: 04/01/24 08:08 Dose: 25 mg Glucose (Glucose Gel 15 Gm Gel..Gram.) 15 gm PO Q15M PRN; Protocol PRN Reason: per Hypoglycemia Standing Ord. Hydroxyzine HCl (Hydroxyzine Hcl 50 Mg Tablet) 50 mg PO TID PRN PRN Reason: Anxiety Last Admin: 03/28/24 18:28 Dose: 50 mg Dextrose (D10) 250 mls @ 750 mls/hr IV Q15M PRN; Protocol PRN Reason: per Hypoglycemia Standing Ord. Vancomycin HCl 1,000 mg/ (Sodium Chloride) 270 mls @ 270 mls/hr IV Q12H [facility] Last Admin: 03/31/24 07:45 Dose: Not Given Insulin Glargine (Insulin Glargine,Hum.Rec.Anlog 100 Unit/Ml 10 Ml Vial) 10 unit SUBCUT BEDTIME [facility] Last Admin: 03/31/24 21:02 Dose: 10 unit Insulin Human Lispro (Insulin Lispro 100 Unit/Ml 3 Ml Vial) 0 unit SUBCUT QIDACHS [facility]; Protocol Last Admin: 04/01/24 08:08 Dose: 4 unit Insulin Human Lispro (Insulin Lispro 100 Unit/Ml 3 Ml Vial) 5 unit SUBCUT QIDACHS [facility] Last Admin: 04/01/24 08:08 Dose: 5 unit Melatonin (Melatonin 3 Mg Tablet) 9 mg PO BEDTIME [facility] Last Admin: 03/31/24 21:01 Dose: 9 mg Multivitamins/Vitamin C (Multivitamin Tablet) 1 tab PO DAILY [facility] Last Admin: 04/01/24 08:08 Dose: 1 tab Nicotine (Nicotine 21 Mg Patch.Td24) 21 mg TRANSDERMA DAILY [facility] Last Admin: 04/01/24 08:08 Dose: 21 mg Pt Own ( Lisdexamfetamine [ Vyvanse] 50 Mg Capsule) 50 mg PO DAILY [facility] Last Admin: 04/01/24 08:05 Dose: 50 mg Pt Own ( Deutetrabenazine [ Austedo Xr] 24 Mg Tablet Extended Release 24 H 24 mg PO DAILY [facility] Last Admin: 04/01/24 08:07 Dose: 24 mg Pt Own (Asenapine Maleate 5 Mg Tablet, Sublingual) 5 mg PO BID [facility] Last Admin: 04/01/24 08:07 Dose: 5 mg Oxycodone HCl (Oxycodone Hcl Immed Release 5 Mg Tablet) 5 mg PO Q4H PRN PRN Reason: moderate pain Last Admin: 04/01/24 05:13 Dose: 5 mg Pharmacy Consult (Consult Rx Vancomycin Dosing) 1 each MISCELLANE DAILY PRN PRN Reason: Consult order Pregabalin (Pregabalin 100 Mg Capsule) 100 mg PO TID [facility] Last Admin: 04/01/24 08:07 Dose: 100 mg Sodium Chloride (0.9 % Sodium Chloride Flush 3 Ml Syringe) [facility] Last Admin: 04/01/24 07:12 Dose: Not Given Topiramate (Topiramate 100 Mg Tablet) 100 mg PO BID [facility] Last Admin: 04/01/24 08:08 Dose: 100 mg Tramadol HCl (Tramadol Hcl 50 Mg Tablet) 50 mg PO Q4H PRN PRN Reason: Pain, Severe (Pain Scale 7-10) Last Admin: 03/29/24 14:09 Dose: 50 mg Home Medications ?Medication ?Instructions ?Recorded ?Confirmed ?Last Taken ?Type asenapine maleate 5 mg sublingual 5 mg sublingual BID 03/27/24 03/30/24 03/27/24 History tablet atorvastatin 20 mg tablet 20 mg PO BEDTIME 03/27/24 03/27/24 03/26/24 History buprenorphine 8 mg-naloxone 2 mg 1 film buccal BID 03/27/24 03/27/24 03/27/24 History sublingual film (Suboxone) clonazepam 0.5 mg tablet 0.5 mg PO BID PRN Anxiety 03/27/24 03/27/24 Unknown History deutetrabenazine 24 mg 24 mg PO DAILY 03/27/24 03/27/24 03/27/24 History tablet,extended release 24 hr (Austedo XR) docusate sodium 100 mg capsule 100 mg PO BID PRN Constipation 03/27/24 03/27/24 Unknown History empagliflozin 25 mg tablet 25 mg PO DAILY 03/27/24 03/27/24 03/27/24 History (Jardiance) hydroxyzine HCl 50 mg tablet 50 mg PO TID PRN Anxiety 03/27/24 03/27/24 Unknown History ibuprofen 600 mg tablet 600 mg PO Q6H PRN Pain (Scale 03/27/24 03/27/24 Unknown History Score 4-6) lisdexamfetamine 50 mg capsule 50 mg PO DAILY 03/27/24 03/27/24 03/27/24 History (Vyvanse) melatonin 10 mg tablet 10 mg PO BEDTIME 03/27/24 03/27/24 03/26/24 History metformin 1,000 mg tablet 1,000 mg PO BIDWM 03/27/24 03/27/24 03/27/24 History multivitamin 1 tab PO DAILY 03/27/24 03/27/24 03/27/24 History nicotine 21 mg/24 hr daily 1 patch transdermal DAILY 03/27/24 03/27/24 Unknown History transdermal patch pregabalin 100 mg capsule 100 mg PO TID 03/27/24 03/27/24 03/27/24 History sennosides 8.6 mg tablet (senna) 17.2 mg PO BEDTIME PRN Constipation 03/27/24 03/27/24 Unknown History topiramate 100 mg tablet 100 mg PO BID 03/27/24 03/27/24 03/27/24 History Physical Exam Vital Signs: Vital Signs: Last Vital Signs Temp 97.4 F 04/01/24 07:29 Pulse 69 04/01/24 07:29 Resp 18 04/01/24 07:29 BP 146/68 H 04/01/24 07:29 Pulse Ox 99 04/01/24 07:29 O2 Del Method Room Air 04/01/24 07:29 BMI result Body Mass Index 34.9 Const: General: cooperative, healthy appearing and comfortable Orientation/consciousness: oriented to person, oriented to place and oriented to time HEENT: Head: Yes normal to inspection Neck: Neck: Yes normal visual inspection Carotids: no bruits Chest: Chest palpation & inspection: normal inspection of the chest Resp: Effort & Inspection: normal respiratory effort and able to speak in complete sentences Auscultation: clear to auscultation bilaterally, no crackles, no rales, no rhonchi and no wheezes Cardio: Other: Bilateral palpable dorsalis pedis pulses Rate: regular rate Rhythm: regular rhythm Heart sounds: S1 normal heart sound present and S2 normal heart sound present Bruits: no carotid bruits Peripheral pulses: Peripheral pulses 2+ throughout GI: Inspection: Yes normal to inspection Skin: Other: Right lateral foot approximately a 2 cm opening with some drainage. There is a silver alginate dressing. Wounds: no wounds Hair: normal Neuro: General: oriented to person, oriented to place and oriented to time Cranial nerves: Yes CN's II-XII intact bilaterally and Yes Normal hearing present Cognition (Neuro): normal cognition Motor exam (neuro): 5/5 motor strength present throughout Extrem: Other: venous exam: No significant superficial varicosities or spider telangiectasias, minimal edema General: No clubbing, No cyanosis and No edema Psych: Appearance: grossly normal Mental Status: mental status grossly normal Speech and movement: Normal speech and movement present Results Labs 03/28/24 07:04 04/01/24 05:19 Labs: Abnormal lab results 03/31/24 03/31/24 03/31/24 Range/Units 11:26 16:35 18:27 POC Glucose 237 H 179 H (60-115) mg/dL Random Vancomycin 4.6 L (15-20) mcg/mL 03/31/24 04/01/24 Range/Units 19:43 07:31 POC Glucose 188 H 220 H (60-115) mg/dL Random Vancomycin (15-20) mcg/mL [facility] 04/01/24 05:19 Creatinine 0.87 All other labs normal. 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 I did have an opportunity to review the arterial testing. That being said she does have a palpable dorsalis pedis pulse. I do not think this is an arterial issue. Would recommend continued IV antibiotics and local wound care. She is at risk for amputation. Upon discharge she can follow up with the [facility]. We will follow on an as-needed basis. Thank you for allowing us to assist in her care. Procedures Date of Service Date of Service: 04/01/24
--- NOTE | 2024-04-01 10:45 | HO.PM.IMPN ---
Subjective Subjective Date of Service: 04/01/24 Interval History: improved ENT Ears, Nose, Mouth, and Throat: Reports Normal hearing present Neurologic Neurologic: Reports Normal hearing present Physical Exam Vital Signs: Vital Signs: Last Vital Signs Temp 97.4 F 04/01/24 07:29 Pulse 69 04/01/24 07:29 Resp 18 04/01/24 07:29 BP 146/68 H 04/01/24 07:29 Pulse Ox 99 04/01/24 07:29 O2 Del Method Room Air 04/01/24 07:29 BMI result Body Mass Index 34.9 Const: General: cooperative, healthy appearing and comfortable Orientation/consciousness: oriented to person, oriented to place and oriented to time HEENT: Head: Yes normal to inspection Neck: Neck: Yes normal visual inspection Carotids: no bruits Chest: Chest palpation & inspection: normal inspection of the chest Resp: Effort & Inspection: normal respiratory effort and able to speak in complete sentences Auscultation: clear to auscultation bilaterally, no crackles, no rales, no rhonchi and no wheezes Cardio: Other: Bilateral palpable dorsalis pedis pulses Rate: regular rate Rhythm: regular rhythm Heart sounds: S1 normal heart sound present and S2 normal heart sound present Bruits: no carotid bruits Peripheral pulses: Peripheral pulses 2+ throughout GI: Inspection: Yes normal to inspection Skin: Other: Right lateral foot approximately a 2 cm opening with some drainage. There is a silver alginate dressing. Wounds: no wounds Hair: normal Neuro: General: oriented to person, oriented to place and oriented to time Cranial nerves: Yes CN's II-XII intact bilaterally and Yes Normal hearing present Cognition (Neuro): normal cognition Motor exam (neuro): 5/5 motor strength present throughout Extrem: Other: venous exam: No significant superficial varicosities or spider telangiectasias, minimal edema General: No clubbing, No cyanosis and No edema Psych: Appearance: grossly normal Mental Status: mental status grossly normal Speech and movement: Normal speech and movement present Objective Data Active Medications Amoxicillin/Clavulanate Potassium (Amoxicillin/Potassium Clav 875 Mg Tablet) 875 mg PO Q12H [facility] Last Admin: 04/01/24 05:14 Dose: 875 mg Documented By: HECTOR Atorvastatin Calcium (Atorvastatin Calcium 20 Mg Tablet) 20 mg PO BEDTIME [facility] Last Admin: 03/31/24 21:02 Dose: 20 mg Documented By: HECTOR Buprenorphine/Naloxone (Buprenorphine/Naloxone 8/2 Mg Film) 1 film BUCCAL BID@0800,1700 [facility] Last Admin: 04/01/24 08:08 Dose: Not Given Documented By: GNIO Non-Admin Reason: Patient Refused Clonazepam (Clonazepam 1 Mg Tablet) 1 mg PO BID PRN PRN Reason: Anxiety Last Admin: 03/31/24 21:05 Dose: 1 mg Documented By: HECTOR Doxycycline Monohydrate (Doxycycline Monohydrate 100 Mg Capsule) 100 mg PO Q12H [facility] Last Admin: 04/01/24 05:14 Dose: 100 mg Documented By: HECTOR Empagliflozin (Empagliflozin 25 Mg Tablet) 25 mg PO DAILY [facility] Last Admin: 04/01/24 08:08 Dose: 25 mg Documented By: GINO Glucose (Glucose Gel 15 Gm Gel..Gram.) 15 gm PO Q15M PRN; Protocol PRN Reason: per Hypoglycemia Standing Ord. Hydroxyzine HCl (Hydroxyzine Hcl 50 Mg Tablet) 50 mg PO TID PRN PRN Reason: Anxiety Last Admin: 03/28/24 18:28 Dose: 50 mg Documented By: STEWEMA Dextrose (D10) 250 mls @ 750 mls/hr IV Q15M PRN; Protocol PRN Reason: per Hypoglycemia Standing Ord. Vancomycin HCl 1,000 mg/ (Sodium Chloride) 270 mls @ 270 mls/hr IV Q12H [facility] Last Admin: 03/31/24 07:45 Dose: Not Given Documented By: GINO Non-Admin Reason: No access MD aware Insulin Glargine (Insulin Glargine,Hum.Rec.Anlog 100 Unit/Ml 10 Ml Vial) 10 unit SUBCUT BEDTIME [facility] Last Admin: 03/31/24 21:02 Dose: 10 unit Documented By: HECTOR Insulin Human Lispro (Insulin Lispro 100 Unit/Ml 3 Ml Vial) 0 unit SUBCUT QIDACHS [facility]; Protocol Last Admin: 04/01/24 08:08 Dose: 4 unit Documented By: GINO Insulin Human Lispro (Insulin Lispro 100 Unit/Ml 3 Ml Vial) 5 unit SUBCUT QIDACHS [facility] Last Admin: 04/01/24 08:08 Dose: 5 unit Documented By: GINO Melatonin (Melatonin 3 Mg Tablet) 9 mg PO BEDTIME [facility] Last Admin: 03/31/24 21:01 Dose: 9 mg Documented By: HECTOR Multivitamins/Vitamin C (Multivitamin Tablet) 1 tab PO DAILY [facility] Last Admin: 04/01/24 08:08 Dose: 1 tab Documented By: GINO Nicotine (Nicotine 21 Mg Patch.Td24) 21 mg TRANSDERMA DAILY [facility] Last Admin: 04/01/24 08:08 Dose: 21 mg Documented By: GINO Pt Own ( Lisdexamfetamine [ Vyvanse] 50 Mg Capsule) 50 mg PO DAILY [facility] Last Admin: 04/01/24 08:05 Dose: 50 mg Documented By: GINO Pt Own ( Deutetrabenazine [ Austedo Xr] 24 Mg Tablet Extended Release 24 H 24 mg PO DAILY [facility] Last Admin: 04/01/24 08:07 Dose: 24 mg Documented By: GINO Pt Own (Asenapine Maleate 5 Mg Tablet, Sublingual) 5 mg PO BID [facility] Last Admin: 04/01/24 08:07 Dose: 5 mg Documented By: GINO Oxycodone HCl (Oxycodone Hcl Immed Release 5 Mg Tablet) 5 mg PO Q4H PRN PRN Reason: moderate pain Last Admin: 04/01/24 09:54 Dose: 5 mg Documented By: GINO Pharmacy Consult (Consult Rx Vancomycin Dosing) 1 each MISCELLANE DAILY PRN PRN Reason: Consult order Pregabalin (Pregabalin 100 Mg Capsule) 100 mg PO TID [facility] Last Admin: 04/01/24 08:07 Dose: 100 mg Documented By: GINO Sodium Chloride (0.9 % Sodium Chloride Flush 3 Ml Syringe) 3 ml IVFLUSH QSHIFT [facility] Last Admin: 04/01/24 07:12 Dose: Not Given Documented By: GINO Non-Admin Reason: No Access Topiramate (Topiramate 100 Mg Tablet) 100 mg PO BID [facility] Last Admin: 04/01/24 08:08 Dose: 100 mg Documented By: GINO Tramadol HCl (Tramadol Hcl 50 Mg Tablet) 50 mg PO Q4H PRN PRN Reason: Pain, Severe (Pain Scale 7-10) Last Admin: 03/29/24 14:09 Dose: 50 mg Documented By: DARRION Labs 03/28/24 07:04 04/01/24 05:19 Labs: Laboratory Results - last 24 hr 03/31/24 03/31/24 03/31/24 11:26 16:35 18:27 Hold Purple Top Estim Creat Clear Calc Estimated GFR POC Glucose 237 H 179 H Random Vancomycin 4.6 L 03/31/24 04/01/24 04/01/24 19:43 05:19 07:31 Hold Purple Top SEE NOTE Estim Creat Clear Calc 72.8 Estimated GFR > 60 POC Glucose 188 H 220 H Random Vancomycin Assessment and Plan (1) Diabetes mellitus: Status: Acute Plan 49F PMH DM, polysubstance dependence, OM s/p right first toe amputation, hcv s/p treatment, bipolar disorder, ADD, [facility] for worsening right foot lateral diabetic foot ulcer Right diabetic foot ulcer with cellulitis and OM continue IV vancomycin 6 weeks, end may 08, 2024 currently no iv access - will cover with po augmentin and doxy until reaccessed arterial duplex - RLE Mild peripheral vascular disease, vascular appreciated - has good pulses, recommends iv abx Diabetes with hyperglycemia Basal bolus insulin, holding orals Bipolar disorder Continue with mood stabilizers DVT prophylaxis with Lovenox Full Code reason for continued hospitalization: iv abx for om Quality Stroke Does the patient have a stroke diagnosis?: No VTE Prior VTE?: No VTE Risk Level:: Medical - moderate - high VTE Device Contraindication: Treatment Not Indicated VTE Drug Contraindication: N/A - Med Ordered
[2024-04-01] MEDS: clonazePAM 1 MG TABLET PO ×2 (10:54→21:46)
[2024-04-01 11:24] LABS: Glucose, Whole Blood 263 mg/dL (60-115)
[2024-04-01] MEDS: hydrOXYzine HCL 50 MG TABLET PO ×2 (14:07→21:46)
[2024-04-01 15:03] VITALS: BP 148/77; PULSE 88; RESP 20; O2SAT 98
[2024-04-01 16:27] LABS: Glucose, Whole Blood 144 mg/dL (60-115)
[2024-04-01] MEDS: Insulin Glargine,Hum.rec.anlog 100 UNIT/ML 10 ML VIAL 10 UNIT SUBCUT (19:58)
[2024-04-01] MEDS: Melatonin 3 MG TABLET 9 MG PO (19:59)
[2024-04-01] MEDS: Atorvastatin Calcium 20 MG TABLET PO (19:59)
[2024-04-01 20:00] VITALS: BP 130/78; PULSE 87; RESP 16; TEMP 36.4; O2SAT 95
[2024-04-01 20:39] LABS: Glucose, Whole Blood 295 mg/dL (60-115)
[2024-04-02] MEDS: oxyCODONE HCl Immed Release 5 MG TABLET PO ×4 (02:03→15:44)
[2024-04-02 03:00] VITALS: BP 139/74; PULSE 78; RESP 16; TEMP 36.3; O2SAT 98
[2024-04-02] MEDS: Amoxicillin/Potassium Clav 875 MG TABLET PO (05:29)
[2024-04-02] MEDS: Doxycycline Monohydrate 100 MG CAPSULE PO (05:29)
[2024-04-02 06:07] LABS: Creatinine Clr Calc Pharmacy 76.4; Estimated Glomerular Filt Rate > 60
[2024-04-02 07:16] VITALS: BP 143/67; PULSE 75; RESP 18; TEMP 36.2; O2SAT 97
[2024-04-02] MEDS: Multivitamin TABLET 1 TAB PO (07:38)
[2024-04-02] MEDS: Empagliflozin 25 MG TABLET PO (07:38)
[2024-04-02] MEDS: Topiramate 100 MG TABLET PO (07:38)
[2024-04-02] MEDS: Pregabalin 100 MG CAPSULE PO ×2 (07:38→14:35)
[2024-04-02] MEDS: Nicotine 21 MG PATCH.TD24 TRANSDERMA (07:41)
[2024-04-02 07:56] LABS: Glucose, Whole Blood 287 mg/dL (60-115)
[2024-04-02] MEDS: Insulin Lispro 100 UNIT/ML 3 ML VIAL SUBCUT ×4 (08:30→11:23)
--- NOTE | 2024-04-02 08:33 | P.CDIM_ITS ---
PROVIDER RESPONSE TEXT: To clarify, the appropriate diagnosis supported by the clinical indicators: Acute QUERY TEXT: PHYSICIAN'S DOCUMENTATION REQUEST Date of Query: 04/02/2024 08:25 AM EDT Patient Name: Maribell Alfredo Admit Date: 03/27/2024 Dear Buck Rodriguez, A review of the medical record indicates additional documentation may be needed. Please review below and update the documentation accordingly. Clinical Indicators: Per Hospitalist Progress Note 04/01/24; Right diabetic foot ulcer with cellulitis and OM continue IV Vancomycin 6 weeks, end [place] 2023 Clarify which of the following accurately represents the acuity of the Osteomyelitis. Possible options might include: Acute Acute on chronic Compensated Chronic stable condition Remission Other (explain) Clinically unable to determine (explain) Thank you, Heather Peres RN Use of terms such as suspected, likely, concern for, or probable (associated with a specific diagnosi s that is being evaluated, monitored, or treated as if it exists) are acceptable and can be coded in the inpatient se tting, when documented at the time of discharge. Please use your independent medical judgment in providing your response. THIS QUERY IS PART OF THE PERMANENT MEDICAL RECORD
--- NOTE | 2024-04-02 09:29 | P.PNIM_ITS ---
Subjective Subjective Date of Service: 04/02/24 Interval History: no new complaints ENT Ears, Nose, Mouth, and Throat: Reports Normal hearing present Neurologic Neurologic: Reports Normal hearing present Physical Exam 2 Vital Signs: Vital Signs: Last Vital Signs Temp 97.1 F 04/02/24 07:16 Pulse 75 04/02/24 07:16 Resp 18 04/02/24 07:16 BP 143/67 H 04/02/24 07:16 Pulse Ox 97 04/02/24 07:16 O2 Del Method Room Air 04/02/24 07:16 BMI result Body Mass Index 34.9 Const: General: cooperative, healthy appearing and comfortable O rientation/consciousness: oriented to person, oriented to place and oriented to time HEENT: Head: Yes normal to inspection Neck: Neck: Yes normal visual inspection Carotids: no bruits Chest: Chest palpation & inspection: normal inspection of the chest Resp: Effort & Inspection: normal respiratory effort and able to speak in complete sentences Auscultation: clear to auscultation bilaterally, no crackles, no rales, no rhonchi and no wheezes Cardio: Other: Bilateral palpable dorsalis pedis pulses Rate: regular rate Rhythm: regular rhythm Heart sounds: S1 normal heart sound present and S2 normal heart sound present Bruits: no carotid bruits Peripheral pulses: Peripheral pulses 2+ throughout GI: Inspection: Yes normal to inspection Skin: Other: Right lateral foot approximately a 2 cm opening with some drainage. There is a silver alginate dressing. Wounds: no wounds Hair: normal Neuro: General: oriented to person, oriented to place and oriented to time Cranial nerves: Yes CN's II-XII intact bilaterally and Yes Normal hearing present Cognition (Neuro): normal cognition Motor exam (neuro): 5/5 motor strength present throughout Extrem: Other: venous exam: No significant superficial varicosities or spider telangiectasias, minimal edema General: No clubbing, No cyanosis and No edema Psych: Appearance: grossly normal Mental Status: mental status grossly normal Speech and movement: Normal speech and movement present Objective Data Active Medications Amoxicillin/Clavulanate Potassium (Amoxicillin/Potassium Clav 875 Mg Tablet) 875 mg PO Q12H [facility] Last Admin: 04/02/24 05:29 Dose: 875 mg Documented By: DEEPIKA Atorvastatin Calcium (Atorvastatin Calcium 20 Mg Tablet) 20 mg PO BEDTIME [facility] Last Admin: 04/01/24 19:59 Dose: 20 mg Documented By: JOEY Buprenorphine/Naloxone (Buprenorphine/Naloxone 8/2 Mg Film) 1 film BUCCAL BID@0800,1700 [facility] Last Admin: 04/02/24 07:40 Dose: Not Given Documented By: CHARMAINE Non-Admin Reason: Patient Refused Clonazepam (Clonazepam 1 Mg Tablet) 1 mg PO BID PRN PRN Reason: Anxiety Last Admin: 04/01/24 21:46 Dose: 1 mg Documented By: JOEY Doxycycline Monohydrate (Doxycycline Monohydrate 100 Mg Capsule) 100 mg PO Q12H [facility] Last Admin: 04/02/24 05:29 Dose: 100 mg Documented By: DEEPIKA Empagliflozin (Empagliflozin 25 Mg Tablet) 25 mg PO DAILY [facility] Last Admin: 04/02/24 07:38 Dose: 25 mg Documented By: CHARMAINE Glucose (Glucose Gel 15 Gm Gel..Gram.) 15 gm PO Q15M PRN; Protocol PRN Reason: per Hypoglycemia Standing Ord. Hydroxyzine HCl (Hydroxyzine Hcl 50 Mg Tablet) 50 mg PO TID PRN PRN Reason: Anxiety Last Admin: 04/01/24 21:46 Dose: 50 mg Documented By: JOEY Dextrose (D10) 250 mls @ 750 mls/hr IV Q15M PRN; Protocol PRN Reason: per Hypoglycemia Standing Ord. Vancomycin HCl 1,000 mg/ (Sodium Chloride) 270 mls @ 270 mls/hr IV Q12H [facility] Last Admin: 03/31/24 07:45 Dose: Not Given Documented By: GINO Non-Admin Reason: No access MD aware Insulin Glargine (Insulin Glargine,Hum.Rec.Anlog 100 Unit/Ml 10 Ml Vial) 10 unit SUBCUT BEDTIME [facility] Last Admin: 04/01/24 19:58 Dose: 10 unit Documented By: JOEY Insulin Human Lispro (Insulin Lispro 100 Unit/Ml 3 Ml Vial) 0 unit SUBCUT QIDACHS [facility]; Protocol Last Admin: 04/02/24 08:30 Dose: 6 unit Documented By: CHARMAINE Insulin Human Lispro (Insulin Lispro 100 Unit/Ml 3 Ml Vial) 5 unit SUBCUT QIDACHS [facility] Last Admin: 04/02/24 08:30 Dose: 5 unit Documented By: CHARMAINE Melatonin (Melatonin 3 Mg Tablet) 9 mg PO BEDTIME [facility] Last Admin: 04/01/24 19:59 Dose: 9 mg Documented By: JOEY Multivitamins/Vitamin C (Multivitamin Tablet) 1 tab PO DAILY [facility] Last Admin: 04/02/24 07:38 Dose: 1 tab Documented By: CHARMAINE Nicotine (Nicotine 21 Mg Patch.Td24) 21 mg TRANSDERMA DAILY [facility] Last Admin: 04/02/24 07:41 Dose: 21 mg Documented By: CHARMAINE Nicotine Polacrilex (Nicotine Polacrilex 2 Mg Gum) 2 mg BUCCAL Q1H PRN PRN Reason: cravings Pt Own ( Lisdexamfetamine [ Vyvanse] 50 Mg Capsule) 50 mg PO DAILY [facility] Last Admin: 04/02/24 07:39 Dose: 50 mg Documented By: CHARMAINE Pt Own ( Deutetrabenazine [ Austedo Xr] 24 Mg Tablet Extended Release 24 H 24 mg PO DAILY [facility] Last Admin: 04/02/24 07:38 Dose: 24 mg Documented By: CHARMAINE Pt Own (Asenapine Maleate 5 Mg Tablet, Sublingual) 5 mg PO BID [facility] Last Admin: 04/02/24 07:39 Dose: 5 mg Documented By: CHARMAINE Oxycodone HCl (Oxycodone Hcl Immed Release 5 Mg Tablet) 5 mg PO Q4H PRN PRN Reason: moderate pain Last Admin: 04/02/24 07:38 Dose: 5 mg Documented By: CHARMAINE Pharmacy Consult (Consult Rx Vancomycin Dosing) 1 each MISCELLANE DAILY PRN PRN Reason: Consult order Pregabalin (Pregabalin 100 Mg Capsule) 100 mg PO TID [facility] Last Admin: 04/02/24 07:38 Dose: 100 mg Documented By: CHARMAINE Sodium Chloride (0.9 % Sodium Chloride Flush 3 Ml Syringe) 3 ml IVFLUSH QSHIFT [facility] Last Admin: 04/02/24 08:53 Dose: Not Given Documented By: CHARMAINE Non-Admin Reason: No Access Topiramate (Topiramate 100 Mg Tablet) 100 mg PO BID [facility] Last Admin: 04/02/24 07:38 Dose: 100 mg Documented By: CHARMAINE Tramadol HCl (Tramadol Hcl 50 Mg Tablet) 50 mg PO Q4H PRN PRN Reason: Pain, Severe (Pain Scale 7-10) Last Admin: 03/29/24 14:09 Dose: 50 mg Documented By: DARRION Labs 03/28/24 07:04 04/02/24 05:24 Labs: Laboratory Results - last 24 hr 04/01/24 04/01/24 04/01/24 11:21 16:24 20:35 Estim Creat Clear Calc Estimated GFR POC Glucose 263 H 144 H 295 H 04/02/24 04/02/24 05:24 07:52 Estim Creat Clear Calc 76.4 Estimated GFR > 60 POC Glucose 287 H Microbiology Microbiology Results: Microbiology 03/27/24 14:29 Blood Culture - Final Blood - Venous No growth after 5 days. 03/27/24 13:42 Blood Culture - Final Blood - Venous No growth after 5 days. Assessment and Plan (1) Diabetes mellitus: Status: Acute Plan 49F PMH DM, polysubstance dependence, OM s/p right first toe amputation, hcv s/p treatment, bipolar disorder, ADD, sent [facility] for worsening right foot lateral diabetic foot ulcer Right diabetic foot ulcer with cellulitis and OM continue IV vancomycin 6 weeks, end may 08, 2024 currently no iv access - covering with po augmentin and doxy until reaccessed, picc ordered arterial duplex - RLE Mild peripheral vascular disease, vascular appreciated - has good pulses, recommends iv abx Diabetes with hyperglycemia Basal bolus insulin, holding orals opiate dependence suboxone Bipolar disorder Continue with mood stabilizers DVT prophylaxis with Lovenox Full Code reason for continued hospitalization: iv abx for om Quality Stroke Does the patient have a stroke diagnosis?: No VTE Prior VTE?: No VTE Risk Level:: Medical - moderate - high VTE Device Contraindication: Treatment Not Indicated VTE Drug Contraindication: N/A - Med Ordered
--- NOTE | 2024-04-02 10:19 | P.DS_ITS ---
DS: Providers Provider Date of Service: 04/02/24 Date of admission: 03/27/24 18:29 Primary care physician: Unknown Physician Consults: 03/27/24 18:27 Consult to Infectious Diseases Routine Consulting Provider: [facility] Reason for consultation: dfu Consult to Wound Care Routine Reason for consultation: dfu 03/31/24 08:45 Consult to Vascular Surgery Routine Consulting Provider: [facility] [facility] Reason for consultation: pvd DS: Diagnosis Discharge Diagnosis (1) Diabetes mellitus: Status: Acute DS: Summary Hospital Course Hospital Course: from initial hpi: 49F PMH DM, polysubstance dependence, OM s/p right first toe amputation, hcv s/p treatment, bipolar disorder, ADD, sent [facility] for worsening right foot lateral diabetic foot ulcer. Patient reports treating current ulcer for several months with wound care, she injured her foot 2 days prior to presentation and has been having increasing pain and feeling off since then. Has not measured any fevers, she is having some drainage from ulcer. In ED patient with leukocytosis, elevated CRP, x-ray negative for osteomyelitis. hospital course: Patient was admitted for right diabetic foot ulcer with cellulitis and osteomyelitis. She was seen by infectious disease recommended 6 weeks of IV vancomycin to be completed 05/08/2024. She had PICC line placed and will complete treatment at [facility]. She also underwent arterial duplex which showed right lower extremity mild peripheral vascular disease, was seen by vascular surgery who felt patient had good pulses and recommended treatment with IV antibiotics. For diabetes with hyperglycemia was given basal bolus insulin. For opiate dependence was continued on Suboxone. For bipolar disorder was continued on mood stabilizers. Patient will be discharged to [facility] she is expected to require less than 30 days. Time Attestation Discharge Coordination Time (in mins): 37 Quality: Safe Use of Opioids Does Pt have an Active Cancer Diagnosis on the Problem List?: No Quality: Stroke Does the patient have a stroke diagnosis?: No Physical Exam Vital Signs: Vital Signs: Last Vital Signs Temp 97.1 F 04/02/24 07:16 Pulse 75 04/02/24 07:16 Resp 18 04/02/24 07:16 BP 143/67 H 04/02/24 07:16 Pulse Ox 97 04/02/24 07:16 O2 Del Method Room Air 04/02/24 07:16 BMI result Body Mass Index 34.9 Const: General: cooperative, healthy appearing and comfortable Orientation/consciousness: oriented to person, oriented to place and oriented to time HEENT: Head: Yes normal to inspection Neck: Neck: Yes normal visual inspection Carotids: no bruits Chest: Chest palpation & inspection: normal inspection of the chest Resp: Effort & Inspection: normal respiratory effort and able to speak in complete sentences Auscultation: clear to auscultation bilaterally, no crackles, no rales, no rhonchi and no wheezes Cardio: Other: Bilateral palpable dorsalis pedis pulses Rate: regular rate Rhythm: regular rhythm Heart sounds: S1 normal heart sound present and S2 normal heart sound present Bruits: no carotid bruits Peripheral pulses: Peripheral pulses 2+ throughout GI: Inspection: Yes normal to inspection Skin: Other: Right lateral foot approximately a 2 cm opening with some drainage. There is a silver alginate dressing. Wounds: no wounds Hair: normal Neuro: General: oriented to person, oriented to place and oriented to time Cranial nerves: Yes CN's II-XII intact bilaterally and Yes Normal hearing present Cognition (Neuro): normal cognition Motor exam (neuro): 5/5 motor strength present throughout Extrem: Other: venous exam: No significant superficial varicosities or spider telangiectasias, minimal edema General: No clubbing, No cyanosis and No edema Psych: Appearance: grossly normal Mental Status: mental status grossly normal Speech and movement: Normal speech and movement present DS: Data Data Completed and Pending Labs on day of discharge: Laboratory Results - last 24 hr 04/01/24 04/01/24 04/01/24 11:21 16:24 20:35 Creatinine Estim Creat Clear Calc Estimated GFR POC Glucose 263 H 144 H 295 H 04/02/24 04/02/24 05:24 07:52 Creatinine 0.83 Estim Creat Clear Calc 76.4 Estimated GFR > 60 POC Glucose 287 H Discharge Plan Discharge Anticipated Discharge Date/Time: 04/02/24 10:15 Patient Disposition: Xfer SNF Discharge Diagnosis: om Referrals: Physician,Unknown J [Primary Care Provider] - 1 Week Discharge Medications: New vancomycin 1,000 mg recon soln 1 g IV Q12H Qty: 10 0RF Rx Instructions: end may 08, 2024 Continued multivitamin Tablet 1 tab PO DAILY sennosides [senna] 8.6 mg Tablet 17.2 mg PO BEDTIME PRN (Reason: Constipation) atorvastatin 20 mg Tablet 20 mg PO BEDTIME clonazepam 0.5 mg Tablet 0.5 mg PO BID PRN (Reason: Anxiety) hydroxyzine HCl 50 mg Tablet 50 mg PO TID PRN (Reason: Anxiety) metformin 1,000 mg Tablet 1,000 mg PO BIDWM nicotine 21 mg/24 hr Patch 24 Hour 1 patch TRANSDERMAL DAILY docusate sodium 100 mg Capsule 100 mg PO BID PRN (Reason: Constipation) ibuprofen 600 mg Tablet 600 mg PO Q6H PRN (Reason: Pain (Scale Score 4-6)) topiramate 100 mg Tablet 100 mg PO BID pregabalin 100 mg Capsule 100 mg PO TID lisdexamfetamine [Vyvanse] 50 mg Capsule 50 mg PO DAILY asenapine maleate 5 mg Tablet, Sublingual 5 mg SUBLINGUAL BID buprenorphine-naloxone [Suboxone] 8-2 mg Film 1 film BUCCAL BID melatonin 10 mg Tablet 10 mg PO BEDTIME Jardiance 25 mg Tablet 25 mg PO DAILY Austedo XR 24 mg Tablet Extended Release 24 Hr 24 mg PO DAILY Discharge Orders: Discharge Order (Routine); Ordered 04/02/24 Ordered By: Buck Rodriguez Diet: Diabetic diet Activity on Discharge: As tolerated Stand Alone Forms: Patient Portal Discharge page Print Language: Ugandan Care Plan Goals: Managed osteomyelitis Health Concerns: Osteomyelitis Plan of Treatment: 6 weeks of IV vancomycin, to be completed 05/08/2024, monitor weekly labs, outpatient follow-up with wound care Assessment: See above
--- NOTE | 2024-04-02 10:31 | P.PICC_ITS ---
PICC Line Insertion NPICC Diagnosis: Osteomyelitis Indication: prison ABT Pertinent Labs: reviewed Technique: Following informed consent including risks, benefits and alternatives and using sterile technique including cap and mask, sterile gown, glove and drape, the right arm was prepped and draped in the usual sterile fashion of full barrier technique with CHG. Following completion of [place] Protocol the skin and soft tissues were anesthetized with 1% Lidocaine plain. Using ultrasound guidance, right basilic vein access was obtained. Over an 0.018 wire through peel-away sheath, a 4 FR single lumen PASV PICC line was positioned. Catheter length is 40cm internal length, 0cm external length, for a total trimmed length of 40cm . The procedure was performed in 272. Tip verification was performed by Frank Kumar with Sherlock 3CG. Tip located in SVC. Ultrasound was used to document vein patency and for needle entry. A formal ultrasound picture and cardiac rhythm strip was recorded. Vascular General Internal Medicine Physician has released the line for use and it is currently dressed with a StatLock, Tegaderm, and CHG disc. Verification has been performed for blood return and line patency. Arm Circumference: 29cm Equipment: Tweetwall PowerPICC SOLO catheter with Sherlock 3CG Tip Catheter Type: 4FR single lumen PASV PICC Lot #: [id number]
--- NOTE | 2024-04-02 10:35 | MHC.CM.PN ---
DP: IMM DELIVERED. PT HAS BEEN MEDICALLY CLEARED FOR DC TO STR FOR IV RX AND WOUND CARE AT [facility]. RN AWARE. CENTER UPDATED. BLS TRANSPORT BOOKED FOR 4 PM VIA [place].
--- NOTE | 2024-04-02 10:40 | P.PICC_ITS ---
PICC Line Insertion NPICC Diagnosis: Osteomyelitis Indication: [facility] ABT Pertinent Labs: reviewed Technique: Following informed consent including risks, benefits and alternatives and using sterile technique including cap and mask, sterile gown, glove and drape, the right arm was prepped and draped in the usual sterile fashion of full barrier technique with CHG. Following completion of [place] Protocol the skin and soft tissues were anesthetized with 1% Lidocaine plain. Using ultrasound guidance, right basilic vein access was obtained. Over an 0.018 wire through peel-away sheath, a 4fr single lumenPASV PICC line was positioned. Catheter length is 40cm internal length, 0cm external length, for a total trimmed length of 40cm. The procedure was performed in rm 272. Tip verification was performed by Frank Kumar with Sabine 3CG. Tip located in SVC. Ultrasound was used to document vein patency and for needle entry. A formal ultrasound picture and cardiac rhythm strip was recorded. [facility] [employer] [facility] Technician has released the line for use and it is currently dressed with a StatLock, Tegaderm, and CHG disc. Verification has been performed for blood return and line patency. Arm Circumference: 29cm Equipment: [employer] SOLO withSHERLOCk 3CG Catheter Type: 4 FR single lumen PASV PICC Lot #: [id number]
[2024-04-02] MEDS: clonazePAM 1 MG TABLET PO (10:56)
[2024-04-02] MEDS: vancomycin HCL 1,250 MG in 0.9 % Sodium Chloride 250 ML 166.67 MG IV (10:56)
[2024-04-02 11:00] LABS: Glucose, Whole Blood 218 mg/dL (60-115)
[2024-04-02 15:28] VITALS: BP 141/70; PULSE 100; RESP 16; TEMP 36.3; O2SAT 98
== END 2024-04-02 16:45 | disposition skilled nursing facility (03) | DRG 300 ==
LOC: HO.ED 15:41 → HO.EDOVER 18:32 → HO.S3 03-28 05:28
PROVIDERS: Physician Assistant; Admitting Provider Internal Medicine; Emergency Provider Emergency Medicine; Visit Provider Internal Medicine
DX: E11.51 Type 2 diabetes mellitus with diabetic peripheral angiopathy without gangrene (principal); F11.20 Opioid dependence, uncomplicated; L03.115 Cellulitis of right lower limb; M86.171 Other acute osteomyelitis, right ankle and foot; F19.20 Other psychoactive substance dependence, uncomplicated; L97.516 Non-pressure chronic ulcer of other part of right foot with bone involvement without evidence of necrosis; F31.9 Bipolar disorder, unspecified; I70.235 Atherosclerosis of native arteries of right leg with ulceration of other part of foot; F17.210 Nicotine dependence, cigarettes, uncomplicated; E11.628 Type 2 diabetes mellitus with other skin complications; F98.8 Other specified behavioral and emotional disorders with onset usually occurring in childhood and adolescence; E11.65 Type 2 diabetes mellitus with hyperglycemia; E11.69 Type 2 diabetes mellitus with other specified complication; Z71.6 Tobacco abuse counseling; Z79.84 Long term (current) use of oral hypoglycemic drugs; Z79.899 Other long term (current) drug therapy
CPT/HCPCS: 36415; 36573; 73630; 73701; 80048; 80053; 80202; 82565; 82947; 83605; 83690; 85025; 85027; 85652; 86140; 87040; 93925; 99285; C1751; J0696; J1885; J2543; J3370; J3371; Q9967

== ENCOUNTER → 2024-03-27 18:29 | Outpatient (BNV) | payer MEDICARE, MEDICAID, SELFPAY | PROVIDERS: Admitting Provider Internal Medicine; Emergency Provider Emergency Medicine; Visit Provider Surgery Vascular Surgery | DX: E11.621 Type 2 diabetes mellitus with foot ulcer (principal); L97.516 Non-pressure chronic ulcer of other part of right foot with bone involvement without evidence of necrosis | CPT/HCPCS: 99222 ==

== ENCOUNTER → 2024-03-27 18:29 | Outpatient (BNV) | payer MEDICARE, MEDICAID, SELFPAY | PROVIDERS: Admitting Provider Internal Medicine; Emergency Provider Emergency Medicine; Visit Provider Internal Medicine | DX: E11.621 Type 2 diabetes mellitus with foot ulcer (principal); L03.115 Cellulitis of right lower limb | CPT/HCPCS: 99223; 99232; 99239 ==

== ENCOUNTER → 2024-03-27 18:29 | Outpatient (BNV) | payer MEDICARE, MEDICAID, SELFPAY | PROVIDERS: Admitting Provider Internal Medicine; Emergency Provider Emergency Medicine; Visit Provider Internal Medicine | DX: E11.621 Type 2 diabetes mellitus with foot ulcer (principal); L97.509 Non-pressure chronic ulcer of other part of unspecified foot with unspecified severity | CPT/HCPCS: 99222 ==

== ENCOUNTER 2024-05-01 11:12 | Outpatient (AMB) | payer MEDICARE, MEDICAID, SELFPAY ==
--- NOTE | 2024-05-01 11:21 | A.OFFVIS_ITS ---
Vital Signs 3 05/01/24 11:51 Height 5 ft Weight 180 lb BMI 35.2 Pulse 88 Pulse Source Pulse Oximeter Temp 98.0 F Temp Source Oral Pulse Oximetry (%) 99 Oxygen Delivery Method Room Air Intake Visit Reasons: reff/ [facility]anco/right foot infection Allergies sulfamethoxazole [From Bactrim] Allergy (Verified 05/01/24 11:51) Unknown trimethoprim [From Bactrim] Allergy (Verified 05/01/24 11:51) Unknown HPI HPI reff/ [facility]/vanco/right foot infection: Details: She is feeling better and has right foot discomfort improving. She has no fever or chills. [facility] Medical History Diabetes mellitus Social History Household Members: Other Housing: Other Housing Other:: [facility] Do you presently have visiting nurse or other home services: No Alcohol intake: former Patient Tobacco Use Status: Current everyday Tobacco user Tobacco use type: Cigarette Cigarettes Per Day: 9 Years Smoked: 35 Second Hand Smoke Exposure: Yes service: No Review of Systems Const All systems reviewed & are unremarkable except as noted in HPI and below Physical Exam Vital Signs: Last Vital Signs Temp 98.0 F 05/01/24 11:51 Pulse 88 05/01/24 11:51 Pulse Ox 99 05/01/24 11:51 Oxygen Delivery Method Room Air 05/01/24 11:51 BMI result Body Mass Index 35.2 Const Other: General: cooperative Orientation/consciousness: patient oriented x3 HEENT Head: Yes normal to inspection Mouth: Normal oral and palatal mucosa present Eyes General: appearance normal, both eyes and all related structures Pupils: Equal, round and reactive pupils present Resp Effort & Inspection: normal respiratory effort Cardio Rate: regular rate Rhythm: regular rhythm GI Palpation (GI): Soft to palpation and nontender General: Yes no CVA tenderness Back/Spine/Pelvis Back: no CVA tenderness Skin General skin exam: no rashes or lesions noted Neuro General: patient oriented x3 Cranial nerves: Yes CN's II-XII intact bilaterally and Yes Equal, round and reactive pupils present Extrem Other: foot per picture Psych Appearance: grossly normal Assessment & Plan Assessment & Plan (1) Diabetic foot ulcer: Code(s): E11.621 - Type 2 diabetes mellitus with foot ulcer; L97.509 - Non-pressure chronic ulcer of other part of unspecified foot with unspecified severity Category: Medical Qualifiers: Diabetes mellitus type: type 2 Diabetic foot ulcer location: toe L aterality: right Non-pressure ulcer stage: with bone involvement without evidence of necrosis Qualified Code(s): E11.621 - Type 2 diabetes mellitus with foot ulcer; L97.516 - 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 See prn need. Coding Level of Care Code Est Pt Level 3 (25823) Diagnoses Diabetic ulcer of toe of right foot associated with type 2 diabetes mellitus, with bone involvement without evidence of necrosis E11.621; L97.516 Diabetes mellitus type: type 2 Diabetic foot ulcer location: toe Laterality: right Non-pressure ulcer stage: with bone involvement without evidence of necrosis
[2024-05-01 11:51] VITALS: PULSE 88; TEMP 36.7; O2SAT 99; BMI 35.2
== END 2024-05-01 13:22 | disposition home or self-care (01) ==
PROVIDERS: Visit Provider Internal Medicine
DX: E11.621 Type 2 diabetes mellitus with foot ulcer (principal); L97.516 Non-pressure chronic ulcer of other part of right foot with bone involvement without evidence of necrosis
CPT/HCPCS: 99213

== ENCOUNTER → 2024-05-01 11:12 | Outpatient (BNVA) | payer MEDICARE, MEDICAID, SELFPAY | PROVIDERS: Visit Provider Internal Medicine | DX: E11.621 Type 2 diabetes mellitus with foot ulcer (principal); L97.516 Non-pressure chronic ulcer of other part of right foot with bone involvement without evidence of necrosis | CPT/HCPCS: 99212 ==